=== PATIENT | male | born 1950 | race Caucasian/White ===

== ENCOUNTER 2019-11-08 01:37 | Inpatient (IN) | payer MEDICARE, OTHER ==
[2019-11-08 02:49] LABS: Glucose,Whole Blood 513 mg/dL (75-99)
[2019-11-08] MEDS ORDERED: INSULIN REGULAR 100 UNIT/ML VIAL IV STA (02:51)
[2019-11-08] MEDS ORDERED: SODIUM CHLORIDE 0.9% 2,000 ML IV ONE (02:51)
--- NOTE | 2019-11-08 02:55 | ED ---
ENT HPI - General Chief complaint: ENT Stated complaint: Dry Mouth Time Seen by Provider: 11/08/19 01:55 Source: patient Mode of arrival: ambulatory Limitations: no limitations - History of Present Illness Initial comments: This patient is a 69-year-old man who presents to be evaluated for dry mouth. He states that the symptoms have been getting progressively worse over the past 2 weeks or so. The patient notes that over the past couple of days his mouth is been so dry that he is not eating solid food. He has been drinking Pedialyte and taking milkshakes only. In addition tonight the patient was feeling a little lightheaded when he stands. He does note that he has been trying to drink a lot of fluids and states that he is urinating more frequently. The patient denies chest pain, palpitations, or dyspnea. No fever or chills. MD complaint: other (Dry mouth) Onset/Timin -: week(s) Severity: severe Severity scale (1-10): 0 Consistency: constant Improves with: none Worsens with: none - Related Data Home Medications Medication Instructions Recorded Confirmed Allopurinol [Zyloprim] 300 mg PO DAILY 11/08/19 11/08/19 Aspirin/Acetaminophen/Caffeine 1 tab PO BID PRN 11/08/19 11/08/19 [Excedrin Migraine Caplet] Bisoprolol-Hctz 2.5-6.25 mg [Ziac 1 tab PO DAILY 11/08/19 11/08/19 2.5-6.25 MG] Cetirizine HCl [Zyrtec] 10 mg PO DAILY PRN 11/08/19 11/08/19 Rosuvastatin Calcium 10 mg PO DAILY 11/08/19 11/08/19 Zolpidem [Ambien] 5 mg PO HS PRN 11/08/19 11/08/19 clonazePAM 2 mg PO HS 11/08/19 11/08/19 clonazePAM [KlonoPIN] 0.5 mg PO QAM 11/08/19 11/08/19 Previous Rx's Medication Instructions Recorded Alcohol Antiseptic Pads [Alcohol 1 each TP QID #120 med..pad 11/09/19 Swabs] Blood Sugar Diagnostic [Test 90 each AC-TID #90 strip 11/09/19 Strips] Insulin Detemir [Levemir Flextouch] 10 units SQ AC-BRKFST #1 pen 11/09/19 Lancets 1 each AC-TID #90 each 11/09/19 Pen Needle, Diabetic [Pen Needle] 1 each [facility] dis.needle 11/09/19 Allergies Allergy/AdvReac Type Severity Reaction Status Date / Time No Known Allergies Allergy Verified 11/08/19 08:47 Review of Systems ROS Statement: Those systems with pertinent positive or pertinent negative responses have been documented in the HPI. ROS Other: All systems not noted in ROS Statement are negative. Constitutional: Denies: fever, chills, weakness Respiratory: Denies: cough, dyspnea Cardiovascular: Denies: chest pain, palpitations, edema, syncope Endocrine: Reports: fatigue, polydipsia, polyuria Gastrointestinal: Denies: abdominal pain, vomiting, diarrhea Genitourinary: Denies: dysuria, hematuria Musculoskeletal: Denies: back pain Skin: Denies: rash Neurological: Denies: headache, weakness, numbness Past Medical History Past Medical History: Hyperlipidemia, Hypertension Additional Past Medical History / Comment(s): kidney stones, anxiety History of Any Multi-Drug Resistant Organisms: None Reported Past Surgical History: Joint Replacement, Prostate Surgery Past Psychological History: No Psychological Hx Reported Smoking Status: Never smoker Past Alcohol Use History: None Reported Past Drug Use History: None Reported - Past Family History Mother Family Medical History: AICD/Pacemaker, Diabetes Mellitus, Thyroid Disorder Additional Family Medical History / Comment(s): Colon cancer, breast cancer, CHF Father Additional Family Medical History / Comment(s): ALS General Exam Limitations: no limitations General appearance: alert, in no apparent distress Head exam: Present: atraumatic, normocephalic Eye exam: Present: normal appearance ENT exam: Present: mucous membranes dry Respiratory exam: Present: normal lung sounds bilaterally. Absent: respiratory distress, wheezes, rales, rhonchi, stridor Cardiovascular Exam: Present: normal rhythm, tachycardia, normal heart sounds. Absent: systolic murmur, diastolic murmur, rubs, gallop GI/Abdominal exam: Present: soft. Absent: distended, tenderness, guarding, rebound, rigid, mass Extremities exam: Present: normal inspection, normal capillary refill. Absent: pedal edema, calf tenderness Back exam: Present: normal inspection. Absent: CVA tenderness (R), CVA tenderness (L) Neurological exam: Present: alert Skin exam: Present: warm, dry, intact, normal color. Absent: rash Course Vital Signs 11/08/19 11/08/19 11/08/19 01:43 05:22 05:30 Temperature 97.5 F L Pulse Rate 121 H Respiratory 20 Rate Blood Pressure 138/72 157/105 O2 Sat by Pulse 98 82 L 95 Oximetry 11/08/19 11/08/19 11/08/19 06:00 06:30 06:58 Temperature 98.3 F Pulse Rate 84 Respiratory Rate Blood Pressure 143/90 143/90 O2 Sat by Pulse 98 100 Oximetry Medical Decision Making - Medical Decision Making This patient is 69-year-old man presenting for dry mouth, polydipsia, polyuria. Patient found to be new onset diabetes mellitus, labs suggesting DKA. Patient started on fluids and insulin and will be admitted area - Lab Data Result diagrams: 11/09/19 03:53 11/09/19 03:53 Lab Results 11/08/19 11/08/19 11/08/19 Range/Units 02:40 02:40 02:40 WBC 7.9 (3.8-10.6) k/uL RBC 5.66 (4.30-5.90) m/uL Hgb 18.3 H (13.0-17.5) gm/dL Hct 53.4 H (39.0-53.0) % MCV 94.3 (80.0-100.0) fL MCH 32.3 (25.0-35.0) pg MCHC 34.3 (31.0-37.0) g/dL RDW 13.3 (11.5-15.5) % Plt Count 308 (150-450) k/uL Neutrophils % 81 % Lymphocytes % 12 % Monocytes % 5 % Eosinophils % 1 % Basophils % 0 % Neutrophils # 6.5 (1.3-7.7) k/uL Lymphocytes # 0.9 L (1.0-4.8) k/uL Monocytes # 0.4 (0-1.0) k/uL Eosinophils # 0.1 (0-0.7) k/uL Basophils # 0.0 (0-0.2) k/uL Sodium 136 L (137-145) mmol/L Potassium 4.8 (3.5-5.1) mmol/L Chloride 98 (98-107) mmol/L Carbon Dioxide 11 L (22-30) mmol/L Anion Gap 27 mmol/L BUN 16 (9-20) mg/dL Creatinine 1.18 (0.66-1.25) mg/dL Est GFR (CKD-EPI)AfAm 73 (>60 ml/min/1.73 sqM) Est GFR (CKD-EPI)NonAf 64 (>60 ml/min/1.73 sqM) Glucose 504 H* (74-99) mg/dL POC Glucose (mg/dL) (75-99) mg/dL POC Glu Linen Aide ID Estimated Ave Glu mg/dL 301 Hemoglobin A1c 12.1 H (4.0-6.0) % Calcium 10.1 (8.4-10.2) mg/dL Total Bilirubin 0.7 (0.2-1.3) mg/dL AST 32 (17-59) U/L ALT 50 H (4-49) U/L Alkaline Phosphatase 128 H (38-126) U/L Total Protein 8.0 (6.3-8.2) g/dL Albumin 5.2 H (3.5-5.0) g/dL Urine Color Urine Appearance (Clear) Urine pH (5.0-8.0) Ur Specific Pedro (1.001-1.035) Urine Protein (Negative) Urine Glucose (UA) (Negative) Urine Ketones (Negative) Urine Blood (Negative) Urine Nitrite (Negative) Urine Bilirubin (Negative) Urine Urobilinogen (<2.0) mg/dL Ur Leukocyte Esterase (Negative) Urine RBC (0-5) /hpf Urine WBC (0-5) /hpf Urine Mucus (None) /hpf Acetone, Qual Positive (Negative) 11/08/19 11/08/19 11/08/19 Range/Units 02:44 03:00 04:35 WBC (3.8-10.6) k/uL RBC (4.30-5.90) m/uL Hgb (13.0-17.5) gm/dL Hct (39.0-53.0) % MCV (80.0-100.0) fL MCH (25.0-35.0) pg MCHC (31.0-37.0) g/dL RDW (11.5-15.5) % Plt Count (150-450) k/uL Neutrophils % % Lymphocytes % % Monocytes % % Eosinophils % % Basophils % % Neutrophils # (1.3-7.7) k/uL Lymphocytes # (1.0-4.8) k/uL Monocytes # (0-1.0) k/uL Eosinophils # (0-0.7) k/uL Basophils # (0-0.2) k/uL Sodium (137-145) mmol/L Potassium (3.5-5.1) mmol/L Chloride (98-107) mmol/L Carbon Dioxide (22-30) mmol/L Anion Gap mmol/L BUN (9-20) mg/dL Creatinine (0.66-1.25) mg/dL Est GFR (CKD-EPI)AfAm (>60 ml/min/1.73 sqM) Est GFR (CKD-EPI)NonAf (>60 ml/min/1.73 sqM) Glucose (74-99) mg/dL POC Glucose (mg/dL) 513 H 450 H (75-99) mg/dL POC Glu Linen Aide Jose Still Tara, A [address]imated [address] Glu mg/dL Hemoglobin A1c (4.0-6.0) % Calcium (8.4-10.2) mg/dL Total Bilirubin (0.2-1.3) mg/dL AST (17-59) U/L ALT (4-49) U/L Alkaline Phosphatase (38-126) U/L Total Protein (6.3-8.2) g/dL Albumin (3.5-5.0) g/dL Urine Color Light Yellow Urine Appearance Clear (Clear) Urine pH 5.0 (5.0-8.0) Ur Specific Pedro 1.029 (1.001-1.035) Urine Protein 1+ H (Negative) Urine Glucose (UA) 4+ H (Negative) Urine Ketones 4+ H (Negative) Urine Blood Small H (Negative) Urine Nitrite Negative (Negative) Urine Bilirubin Negative (Negative) Urine Urobilinogen <2.0 (<2.0) mg/dL Ur Leukocyte Esterase Negative (Negative) Urine RBC <1 (0-5) /hpf Urine WBC 1 (0-5) /hpf Urine Mucus Rare H (None) /hpf Acetone, Qual (Negative) Critical Care Time Critical Care Time: Yes (35 minutes) Disposition Clinical Impression: DKA (diabetic ketoacidosis) Disposition: ADMITTED IP TO THIS [facility] Condition: Stable Is patient prescribed a controlled substance at d/c from ED?: No
[2019-11-08 03:09] LABS: ALT 50 U/L (4-49); AST 32 U/L (17-59); African American GFR (CKD) 73 (>60 ml/min/1.73 sqM); Albumin 5.2 g/dL (3.5-5.0); Alkaline Phosphatase 128 U/L (38-126); Anion Gap 27 mmol/L; Blood Urea Nitrogen 16 mg/dL (9-20); Calcium 10.1 mg/dL (8.4-10.2); Carbon Dioxide 11 mmol/L (22-30); Chloride 98 mmol/L (98-107); Non-African American GFR(CKD) 64 (>60 ml/min/1.73 sqM); Potassium 4.8 mmol/L (3.5-5.1); Sodium 136 mmol/L (137-145); Total Bilirubin 0.7 mg/dL (0.2-1.3)
[2019-11-08 03:13] LABS: Glucose 504 mg/dL (74-99)
[2019-11-08 03:28] LABS: Appearance,Urine Clear (Clear); Bilirubin,Urine Negative (Negative); Blood,Urine Small (Negative); Color,Urine Light Yellow; Glucose,Urine (UA) 4+ (Negative); Leukocyte Esterase,Urine Negative (Negative); Mucus,Urine Rare /hpf; Nitrite,Urine Negative (Negative); Protein,Urine 1+ (Negative); RBC,Urine <1 /hpf (0-5); Specific Gravity,Urine 1.029 (1.001-1.035); Urobilinogen,Urine <2.0 mg/dL (<2.0); WBC,Urine 1 /hpf (0-5)
[2019-11-08 03:30] LABS: Basophils % (A) 0 %; Eosinophils # (A) 0.1 k/uL (0-0.7); Eosinophils % (A) 1 %; HCT 53.4 % (39.0-53.0); HGB 18.3 gm/dL (13.0-17.5); Lymphocytes # (A) 0.9 k/uL (1.0-4.8); Lymphocytes % (A) 12 %; MCH 32.3 pg (25.0-35.0); MCHC 34.3 g/dL (31.0-37.0); MCV 94.3 fL (80.0-100.0); Mean Platelet Volume 8.6; Monocytes # (A) 0.4 k/uL (0-1.0); Monocytes % (A) 5 %; Neutrophils # (A) 6.5 k/uL (1.3-7.7); Neutrophils % (A) 81 %; Platelet Count 308 k/uL (150-450); RBC 5.66 m/uL (4.30-5.90); RDW 13.3 % (11.5-15.5); WBC 7.9 k/uL (3.8-10.6)
[2019-11-08 03:32] LABS: Ketones,Urine 4+ (Negative)
[2019-11-08 04:38] LABS: Glucose,Whole Blood 450 mg/dL (75-99)
[2019-11-08] MEDS ORDERED: D5-0.45% NACL WITH KCL 20MEQ/L 1,000 ML IV SCH (05:15)
[2019-11-08] MEDS: INSULIN REGULAR 100 UNIT in SODIUM CHLORIDE 0.9% 100 ML IV SCH ×2 (05:23→15:03)
[2019-11-08] MEDS: SODIUM CHLORIDE 0.9% 1,000 ML IV SCH ×3 (05:26→16:55)
[2019-11-08 06:25] LABS: Glucose,Whole Blood 420 mg/dL (75-99)
--- NOTE | 2019-11-08 06:27 | P.HPIM ---
History of Present Illness H&P Date: 11/08/19 The patient is a 69-year-old male with a PMH of hypertension and hyperlipidemia who presented to the ED with complaints of dry mouth and fatigue. The patient notes that over the past 2-3 weeks, he has had increased thirst, polyuria, and dry mouth, despite drinking a significant amount of water. He notes that the dry mouth has been so bothersome that he has only been able to eat soups and popsicles for the past few days. He routinely follows with Dr. Vinson and was last seen in his clinic in November 2018 where he underwent his regular blood work. He denied ever being diagnosed with diabetes. He notes that over the past few days, he has also felt very tired and has had very little energy to do most of his activities of daily living such as walking his dog. He otherwise denied visual disturbances, headache, chest pain, shortness of breath, nausea, vomiting, abdominal pain, or diarrhea. He underwent an extensive evaluation in the emergency room with glucose 504, anion gap 27, CO2 11, 4+ ketones and 4+ glucose in the urine, with WBC count 7.9, hemoglobin 18.3, and platelets 308. The patient was given 1 L normal saline bolus and was started on insulin infusion and is being admitted for further management of newly diagnosed diabetes mellitus with DKA. Review of Systems Pertinent positives and negatives as discussed in HPI, a complete review of systems was performed and all other systems are negative. Past Medical History Past Medical History: Hyperlipidemia, Hypertension Additional Past Medical History / Comment(s): kidney stones, anxiety History of Any Multi-Drug Resistant Organisms: None Reported Past Surgical History: Joint Replacement, Prostate Surgery Past Psychological History: No Psychological Hx Reported Smoking Status: Never smoker Past Alcohol Use History: None Reported Past Drug Use History: None Reported Medications and Allergies Allergies Allergy/AdvReac Type Severity Reaction Status Date / Time No Known Allergies Allergy Verified 11/08/19 01:50 Physical Exam Vitals: Vital Signs Temp Pulse Resp BP Pulse Ox 11/08/19 05:30 157/105 95 11/08/19 05:22 82 L 11/08/19 01:43 97.5 F L 121 H 20 138/72 98 Intake and Output 11/07/19 11/07/19 11/08/19 14:59 22:59 06:59 Other: Weight 97.522 kg General: non toxic, no distress, appears at stated age, normal weight Derm: no unusual rashes/lesions no unusual ecchymoses, warm, dry Head: atraumatic, normocephalic, symmetric Eyes: EOMI, no lid lag, anicteric sclera, pupils equal round reactive to light ENT: Nose and ears atraumatic, no thrush, no pharyngeal erythema Neck: No thyromegaly, no cervical lymphadenopathy, trachea midline, supple Mouth: no lip lesion, mucus membranes very dry Cardiovascular: S1S2 reg, no murmur, positive posterior tibial pulse bilateral, no edema, capillary refill less than 2 seconds Lungs: CTA bilateral, no rhonchi, no rales , no accessory muscle use Abdominal: soft, nontender to palpation, no guarding, no appreciable organomegaly, normal bowel sounds Ext: no gross muscle atrophy, muscle strength 5 out of 5 in all 4 extremities grossly, no contractures, Neuro: CN II-XI grossly intact, light touch intact all 4 extremities, finger to nose within normal limits, Psych: Alert, oriented, appropriate affect Results CBC & Chem 7: 11/08/19 02:40 11/08/19 02:40 Labs: Abnormal Lab Results - Last 24 Hours (Table) 11/08/19 11/08/19 11/08/19 Range/Units 02:40 02:40 02:44 Hgb 18.3 H (13.0-17.5) gm/dL Hct 53.4 H (39.0-53.0) % Lymphocytes # 0.9 L (1.0-4.8) k/uL Sodium 136 L (137-145) mmol/L Carbon Dioxide 11 L (22-30) mmol/L Glucose 504 H* (74-99) mg/dL POC Glucose (mg/dL) 513 H (75-99) mg/dL ALT 50 H (4-49) U/L Alkaline Phosphatase 128 H (38-126) U/L Albumin 5.2 H (3.5-5.0) g/dL Urine Protein (Negative) Urine Glucose (UA) (Negative) Urine Ketones (Negative) Urine Blood (Negative) Urine Mucus (None) /hpf 11/08/19 11/08/19 Range/Units 03:00 04:35 Hgb (13.0-17.5) gm/dL Hct (39.0-53.0) % Lymphocytes # (1.0-4.8) k/uL Sodium (137-145) mmol/L Carbon Dioxide (22-30) mmol/L Glucose (74-99) mg/dL POC Glucose (mg/dL) 450 H (75-99) mg/dL ALT (4-49) U/L Alkaline Phosphatase (38-126) U/L Albumin (3.5-5.0) g/dL Urine Protein 1+ H (Negative) Urine Glucose (UA) 4+ H (Negative) Urine Ketones 4+ H (Negative) Urine Blood Small H (Negative) Urine Mucus Rare H (None) /hpf Assessment and Plan Plan: Newly diagnosed diabetes mellitus with DKA -Continue with insulin infusion with normal saline 200 mL an hour -Switch to D5 1/2 NS when blood glucose less than 250, as per protocol -Continue to monitor BMP every 4 hourly and blood glucose every 30 minutes -Diabetes nurse educator consult -Follow up A1c Abnormal LFTs -Likely secondary to dehydration and poorly controlled diabetes -Continue with above management Polycythemia -Likely due dehydration and hemoconcentration -Monitor CBC for now Chronic conditions: Hypertension, hyperlipidemia -Continue with home meds DVT prophylaxis -Heparin subq The patient is admitted with an anticipated less than 2 midnight stay for evaluation of DKA CODE STATUS: No Code with instructions Discussed with: Patient Anticipated discharge date: 11/[address]: Home A total of 40 minutes was spent on the care of this complex patient more than 50% of the time was spent in counseling and care coordination.
[2019-11-08 07:33] LABS: Glucose,Whole Blood 306 mg/dL (75-99)
--- NOTE | 2019-11-08 09:01 | XR ---
EXAMINATION TYPE: XR chest 1V portable DATE OF EXAM: 11/08/2019 HISTORY: Shortness of breath. COMPARISON: None. TECHNIQUE: Single view of the chest is submitted. FINDINGS: Demonstrated are scattered senescent parenchymal change. There is no evidence for focal infiltrate. The heart is stable. Hilar and mediastinal structures are within normal limits. Degenerative changes are seen of the dorsal spine. IMPRESSION: 1. Chronic changes without evidence for acute pulmonary disease.
[2019-11-08 09:09] LABS: Glucose,Whole Blood 228 mg/dL (75-99)
[2019-11-08 09:11] LABS: African American GFR (CKD) >90 (>60 ml/min/1.73 sqM); Amylase 44 U/L (30-110); Anion Gap 17 mmol/L; Blood Urea Nitrogen 16 mg/dL (9-20); Carbon Dioxide 12 mmol/L (22-30); Chloride 107 mmol/L (98-107); Glucose 203 mg/dL (74-99); Non-African American GFR(CKD) 89 (>60 ml/min/1.73 sqM); Sodium 136 mmol/L (137-145)
[2019-11-08 09:13] LABS: VBG PH 7.17 (7.31-7.41)
[2019-11-08] MEDS: D5-0.45% NACL WITH KCL 20MEQ/L 1,000 ML IV SCH ×3 (09:45→19:47)
[2019-11-08 10:07] VITALS: BMI 31.9
[2019-11-08 10:15] LABS: Glucose,Whole Blood 181 mg/dL (75-99)
[2019-11-08] MEDS ORDERED: ZOLPIDEM 5 MG TAB PO PRN (11:03)
[2019-11-08] MEDS ORDERED: LORATADINE 10 MG TAB PO PRN (11:03)
--- NOTE | 2019-11-08 11:03 | P.PN ---
Progress Note - Text Progress Note Date: 11/08/19 Patient is a new admitted from last night, he was seen and examined. He is currently still in DKA, on insulin drip. He'll be started on clear liquid diet. Continue DKA protocol, will start subcu insulin once gap closes. Resume home meds.
[2019-11-08 11:10] LABS: Glucose,Whole Blood 167 mg/dL (75-99)
--- NOTE | 2019-11-08 11:52 | P.CNPUL ---
History of Present Illness Consult date: 11/08/19 Chief complaint: Acute hyperglycemia, DKA History of present illness: This is a 69-year-old male patient has been having these oral intake and liquid intake in addition to dry mouth and increased urination over the past 3 months. He was having polyuria and polydipsia. He claims that he has had his blood work routinely through his primary care physician and he was not told to have any abnormalities noted. He was getting gradually worse and over the past few days he became more tired and fatigued and lethargic and he was having also extensive tiredness. He came into the emergency department where he was found to have a blood sugar of 504 with an anion gap of 27 and a serum bicarb of 11 with a plus for ketones on in his urine and this was consistent with acute diabetic ketoacidosis. Note that the patient is not known to have diabetes. Diabetes on the family. No fever. No chills no night sweats. No dysuria fixed urgency. No chest pain. He was started on IV fluids. He was given immediately 2 L bolus and the patient was started on insulin drip is currently running at 9 units an hour. He is also on normal saline at rate of 200 and hour. New onset diabetes mellitus and new onset DKA in this patient. No history of abdominal tumors or alcoholism. He is awake and alert and is following commands and answering questions appropriately. He is known to have diabetes hyperlipidemia. Review of Systems Constitutional: Reports lethargy, Reports weakness Eyes: bilateral blurred vision, denies as per HPI, denies bulging eye, denies decreased vision, denies diplopia, denies discharge, denies dry eye, denies irritation, denies itching, denies pain, denies photophobia, denies loss of peripheral vision, denies loss of vision, denies tunnel vision/blind spots Ears: deny: decreased hearing, ear discharge, earache, tinnitus Ears, nose, mouth and throat: Denies headache, Denies sore throat Breasts: absent: as per HPI, gynecomastia Cardiovascular: Reports as per HPI Respiratory: Reports as per HPI Gastrointestinal: Reports as per HPI Genitourinary: Reports as per HPI Musculoskeletal: Reports as per HPI Musculoskeletal: absent: ankle pain, ankle stiffness, ankle swelling Integumentary: Reports as per HPI Neurological: Reports as per HPI Psychiatric: Reports as per HPI Endocrine: Reports polydipsia, Reports polyuria Hematologic/Lymphatic: Reports as per HPI Allergic/Immunologic: Reports as per HPI Past Medical History Past Medical History: Hyperlipidemia, Hypertension Additional Past Medical History / Comment(s): kidney stones, anxiety History of Any Multi-Drug Resistant Organisms: None Reported Past Surgical History: Joint Replacement, Prostate Surgery Additional Past Surgical History / Comment(s): Left knee total knee - 2007, re vision - 2012. TURP - 2006 Past Anesthesia/Blood Transfusion Reactions: No Reported Reaction Past Psychological History: Anxiety Smoking Status: Never smoker Past Alcohol Use History: None Reported Past Drug Use History: None Reported - Past Family History Mother Family Medical History: AICD/Pacemaker, Diabetes Mellitus, Thyroid Disorder Additional Family Medical History / Comment(s): Colon cancer, breast cancer, CHF Father Additional Family Medical History / Comment(s): ALS Medications and Allergies Home Medications Medication Instructions Recorded Confirmed Type Allopurinol [Zyloprim] 300 mg PO DAILY 11/08/19 11/08/19 History Aspirin/Acetaminophen/Caffeine 1 tab PO BID PRN 11/08/19 11/08/19 History [Excedrin Migraine Caplet] Bisoprolol-Hctz 2.5-6.25 mg [Ziac 1 tab PO DAILY 11/08/19 11/08/19 History 2.5-6.25 MG] Cetirizine HCl [Zyrtec] 10 mg PO DAILY PRN 11/08/19 11/08/19 History Rosuvastatin Calcium 10 mg PO DAILY 11/08/19 11/08/19 History Zolpidem [Ambien] 5 mg PO HS PRN 11/08/19 11/08/19 History clonazePAM 2 mg PO HS 11/08/19 11/08/19 History clonazePAM [KlonoPIN] 0.5 mg PO QAM 11/08/19 11/08/19 History Allergies Allergy/AdvReac Type Severity Reaction Status Date / Time No Known Allergies Allergy Verified 11/08/19 08:47 Physical Exam Vitals: Vital Signs Temp Pulse Resp BP Pulse Ox 11/08/19 11:00 87 14 112/77 98 11/08/19 10:00 91 14 112/80 97 11/08/19 09:00 88 13 134/83 97 11/08/19 08:00 97.1 F L 101 H 18 153/89 98 11/08/19 06:58 84 11/08/19 06:30 98.3 F 143/90 100 11/08/19 06:00 143/90 98 11/08/19 05:30 157/105 95 11/08/19 05:22 82 L 11/08/19 01:43 97.5 F L 121 H 20 138/72 98 Intake and Output 11/07/19 11/08/19 11/08/19 22:59 06:59 14:59 Intake Total 950 Output Total 600 Balance 350 Intake: IV 750 D5-0.45% NaCl with KCl 200 20Meq/l 1,000 ml @ 150 mls/hr IV .Q6H40M ALEX Rx# :[id number] Sodium Chloride 0.9% 1, 550 000 ml @ 200 mls/hr IV . Q5H ALEX Rx#:[id number] Oral 200 Output: Urine 600 Other: Voiding Method Toilet Urinal Weight 97.522 kg 95.3 kg The patient appeared well nourished and normally developed. Vital signs as documented. Head exam is unremarkable. No scleral icterus or corneal arcus noted. Neck is without jugular venous distension, thyromegaly, or carotid bruits. Carotid upstrokes are brisk bilaterally. Lungs are clear to auscultation and percussion. Cardiac exam reveals the PMI to be normally sized and situated. Rhythm is regular. First and second heart sounds normal. No murmurs, rubs or gallops. Abdominal exam reveals normal bowel sounds, no masses, no organomegaly and no aortic enlargement. Extremities are nonedematous and both femoral and pedal pulses are normal.Examination of the skin revealed no evidence of significant rashes, suspicious appearing nevi or other concerning lesions. Neurologically the patient is awake and alert and there is no focal neurological deficits. Results - Laboratory Findings CBC and BMP: 11/08/19 02:40 11/08/19 08:25 Abnormal lab findings: Abnormal Labs 11/08/19 11/08/19 11/08/19 02:40 02:40 02:44 Hgb 18.3 H Hct 53.4 H Lymphocytes # 0.9 L VBG pH VBG pCO2 VBG HCO3 Sodium 136 L Carbon Dioxide 11 L Glucose 504 H* POC Glucose (mg/dL) 513 H ALT 50 H Alkaline Phosphatase 128 H Albumin 5.2 H Lipase Urine Protein Urine Glucose (UA) Urine Ketones Urine Blood Urine Mucus 11/08/19 11/08/19 11/08/19 03:00 04:35 06:24 Hgb Hct Lymphocytes # VBG pH VBG pCO2 VBG HCO3 Sodium Carbon Dioxide Glucose POC Glucose (mg/dL) 450 H 420 H ALT Alkaline Phosphatase Albumin Lipase Urine Protein 1+ H Urine Glucose (UA) 4+ H Urine Ketones 4+ H Urine Blood Small H Urine Mucus Rare H 11/08/19 11/08/19 11/08/19 07:31 08:25 08:25 Hgb Hct Lymphocytes # VBG pH 7.17 L* VBG pCO2 36 L VBG HCO3 12 L Sodium 136 L Carbon Dioxide 12 L Glucose 203 H POC Glucose (mg/dL) 306 H ALT Alkaline Phosphatase Albumin Lipase 387 H Urine Protein Urine Glucose (UA) Urine Ketones Urine Blood Urine Mucus 11/08/19 11/08/19 11/08/19 09:07 10:12 11:09 Hgb Hct Lymphocytes # VBG pH VBG pCO2 VBG HCO3 Sodium Carbon Dioxide Glucose POC Glucose (mg/dL) 228 H 181 H 167 H ALT Alkaline Phosphatase Albumin Lipase Urine Protein Urine Glucose (UA) Urine Ketones Urine Blood Urine Mucus - Diagnostic Findings Chest x-ray: image reviewed Assessment and Plan Plan: 1 DKA in a patient who is been diagnosed having a new onset diabetes mellitus 2 anion gap metabolic acidosis secondary to above 3 elevated hemoglobin likely secondary to hemoconcentration 4 hypertension 5 hyperlipidemia Plan Continue with insulin drip based on our DKA protocol. The patient's blood sugar remains above 300 and we'll switch him to D5 half-normal once the blood sugar is less than 250 and continue the insulin drip and monitor the anion gap in the metabolic acidosis and a BMP is being run every 4 hours. Check HbA1c Check CAT scan of the abdomen and pelvis Check amylase and lipase Check islet cell antibodies Check lipid profile Diabetes education We'll continue to follow
[2019-11-08 12:02] LABS: Glucose,Whole Blood 171 mg/dL (75-99)
[2019-11-08] MEDS: BISOPROLOL-HCTZ 2.5-6.25 MG 1 EACH TAB PO SCH (12:11)
[2019-11-08] MEDS: ALLOPURINOL 300 MG TAB PO SCH (12:11)
[2019-11-08] MEDS: ATORVASTATIN 20 MG TAB PO SCH (12:11)
[2019-11-08 12:46] LABS: African American GFR (CKD) >90 (>60 ml/min/1.73 sqM); Anion Gap 10 mmol/L; Blood Urea Nitrogen 15 mg/dL (9-20); Carbon Dioxide 17 mmol/L (22-30); Chloride 108 mmol/L (98-107); Glucose 149 mg/dL (74-99); Non-African American GFR(CKD) >90 (>60 ml/min/1.73 sqM); Phosphorus 1.7 mg/dL (2.5-4.5); Sodium 135 mmol/L (137-145)
[2019-11-08 13:11] LABS: Hemoglobin A1C 12.1 % (4.0-6.0)
[2019-11-08 13:17] LABS: Glucose,Whole Blood 229 mg/dL (75-99)
[2019-11-08] MEDS: IOPAMIDOL CONTRAST (ORAL USE) VIAL PO PRN ×2 (13:48→14:45)
[2019-11-08 14:10] LABS: Glucose,Whole Blood 223 mg/dL (75-99)
[2019-11-08 15:12] LABS: Glucose,Whole Blood 191 mg/dL (75-99)
[2019-11-08 16:09] LABS: Glucose,Whole Blood 146 mg/dL (75-99)
[2019-11-08 16:23] LABS: ALT 34 U/L (4-49); AST 31 U/L (17-59); African American GFR (CKD) >90 (>60 ml/min/1.73 sqM); Albumin 3.4 g/dL (3.5-5.0); Alkaline Phosphatase 69 U/L (38-126); Anion Gap 9 mmol/L; Blood Urea Nitrogen 13 mg/dL (9-20); Calcium 8.3 mg/dL (8.4-10.2); Carbon Dioxide 18 mmol/L (22-30); Chloride 104 mmol/L (98-107); Glucose 118 mg/dL (74-99); Non-African American GFR(CKD) >90 (>60 ml/min/1.73 sqM); Phosphorus 1.3 mg/dL (2.5-4.5); Potassium 3.3 mmol/L (3.5-5.1); Sodium 131 mmol/L (137-145); Total Bilirubin 0.4 mg/dL (0.2-1.3); Total Protein 5.8 g/dL (6.3-8.2)
[2019-11-08] MEDS ORDERED: Potassium Replacement Protocol 1 EACH MISC MISCELLANE PRN (16:43)
[2019-11-08] MEDS ORDERED: Phosphorus Replacement Protoco 1 EACH MISC MISCELLANE PRN (16:44)
--- NOTE | 2019-11-08 17:01 | CT ---
EXAMINATION TYPE: CT abdomen pelvis wo con DATE OF EXAM: 11/08/2019 COMPARISON: None HISTORY: abdominal pain, new diabetes dx CT DLP: 840.4 mGycm Automated exposure control for dose reduction was used. TECHNIQUE: Helical acquisition of images from the lung bases through the pelvis following oral contr ast only. FINDINGS: LUNG BASES: No significant abnormality is appreciated. AORTA: No significant abnormality is appreciated. LIVER/GB: The gallbladder shows luminal high density possibly due to vicarious excretion of contrast or tumefactive sludge, there are associated stones with central stellate lucency. No gallbladder wall thickening or pericholecystic fluid. Low dense foci within the liver are present, towards the dome l aterally there is a focus measuring 3 cm and a smaller focus within the medial segment left lobe subc entimeter in size.. PANCREAS: No significant abnormality is seen. SPLEEN: No significant abnormality is seen. ADRENALS: No significant abnormality is seen. KIDNEYS: 3 cm exophytic cyst at the lower pole the right kidney is likely a simple cyst, possible exo phytic cyst also present at the anterior aspect of the midpole measuring 2.1 cm, smaller cystic focus present at the lower pole anteriorly. No hydronephrosis bilaterally. Nonobstructive calculus present at the lower pole the left kidney is punctate. Possible dense cyst in exophytic location of the midp ole measures only 13 mm but shows increased attenuation, Hounsfield unit 55 on axial image 26, additi onal scattered hypodensities are not clearly simple cysts within the left kidney but the midpole on a xial image 29 and at the lower pole on axial image #41 and 42 REPRODUCTIVE ORGANS: Patient is post prostatectomy, surgical clips present in the pelvis URINARY BLADDER: No significant abnormality is seen. BOWEL: No significant abnormality is seen. Fundus of the stomach shows questionable wall thickening. FREE AIR: No Free Air is visible. ASCITES: None visible. PELVIC ADENOPATHY: None visualized. RETROPERITONEAL ADENOPATHY: No Retroperitoneal Adenopathy visible. OSSEOUS STRUCTURES: Facet arthropathy change, degenerative disc disease in the lower lumbar spine. IMPRESSION: NONCONTRAST EXAM. POSTOP CHANGES. INDETERMINATE RENAL LESIONS COULD POSSIBLY REPRESENT PROTEINACEOUS CYSTS, FOLLOW-UP IS RECOMMENDED. SMALL HIATAL HERNIA. POSSIBLE GASTRIC WALL THICKENING.
[2019-11-08 17:13] LABS: Glucose,Whole Blood 154 mg/dL (75-99)
[2019-11-08] MEDS: INSULIN DETEMIR (LEVEMIR) 100 UNIT/ML SYR SQ SCH (17:41)
[2019-11-08] MEDS: INSULIN ASPART (NovoLOG) 100 UNIT/ML VIAL SQ SCH ×2 (17:42→20:35)
[2019-11-08] MEDS: POTASSIUM CHLORIDE ER 20 MEQ TAB.ER PO SCH ×2 (17:49→18:45)
[2019-11-08 18:23] LABS: Glucose,Whole Blood 163 mg/dL (75-99)
[2019-11-08] MEDS: POTASSIUM PHOSPHATE 10 MMOL in SODIUM CHLORIDE 0.9% 250 ML IV SCH ×2 (19:48→22:13)
[2019-11-08 20:18] LABS: Glucose,Whole Blood 182 mg/dL (75-99)
[2019-11-08] MEDS ORDERED: clonazePAM 1 MG TAB PO SCH (21:00)
[2019-11-09] MEDS: POTASSIUM PHOSPHATE 10 MMOL in SODIUM CHLORIDE 0.9% 250 ML IV SCH (01:47)
[2019-11-09] MEDS: INSULIN REGULAR 100 UNIT in SODIUM CHLORIDE 0.9% 100 ML IV SCH (02:00)
[2019-11-09 04:29] LABS: HCT 38.7 % (39.0-53.0); MCH 32.3 pg (25.0-35.0); MCV 92.3 fL (80.0-100.0); Mean Platelet Volume 8.3; Platelet Count 188 k/uL (150-450); RBC 4.19 m/uL (4.30-5.90); RDW 13.4 % (11.5-15.5); WBC 6.7 k/uL (3.8-10.6)
[2019-11-09 04:33] VITALS: PULSE 78
[2019-11-09 04:36] LABS: ALT 36 U/L (4-49); AST 31 U/L (17-59); African American GFR (CKD) >90 (>60 ml/min/1.73 sqM); Albumin 3.1 g/dL (3.5-5.0); Alkaline Phosphatase 68 U/L (38-126); Anion Gap 10 mmol/L; Blood Urea Nitrogen 10 mg/dL (9-20); Calcium 8.2 mg/dL (8.4-10.2); Carbon Dioxide 17 mmol/L (22-30); Chloride 105 mmol/L (98-107); Glucose 200 mg/dL (74-99); Non-African American GFR(CKD) >90 (>60 ml/min/1.73 sqM); Phosphorus 2.9 mg/dL (2.5-4.5); Potassium 4.2 mmol/L (3.5-5.1); Sodium 132 mmol/L (137-145); Total Bilirubin 0.6 mg/dL (0.2-1.3); Total Protein 5.3 g/dL (6.3-8.2)
[2019-11-09 04:44] LABS: HGB 13.5 gm/dL (13.0-17.5)
[2019-11-09 06:32] LABS: Glucose,Whole Blood 245 mg/dL (75-99)
[2019-11-09] MEDS: INSULIN ASPART (NovoLOG) 100 UNIT/ML VIAL SQ SCH ×2 (06:42→12:32)
[2019-11-09] MEDS: INSULIN DETEMIR (LEVEMIR) 100 UNIT/ML SYR SQ SCH (06:51)
[2019-11-09 08:05] VITALS: BP 123/83; RESP 18; TEMP 97.7
[2019-11-09] MEDS: ATORVASTATIN 20 MG TAB PO SCH (08:38)
[2019-11-09] MEDS: BISOPROLOL-HCTZ 2.5-6.25 MG 1 EACH TAB PO SCH (08:40)
[2019-11-09] MEDS: ALLOPURINOL 300 MG TAB PO SCH (08:40)
[2019-11-09] MEDS ORDERED: clonazePAM 0.5 MG TAB PO SCH (09:00)
[2019-11-09 11:42] LABS: Glucose,Whole Blood 254 mg/dL (75-99)
--- NOTE | 2019-11-09 11:55 | P.DS ---
Providers Date of admission: 11/08/19 05:06 Expected date of discharge: 11/09/19 Attending physician: Matt Farias MD Consults: 11/08/19 06:18 Consult Physician Urgent Consulting Provider: Venkatesh Hunter Consult Reason/Comments: DKA Do you want consulting provider notified?: Already Contacted Primary care physician: Eric Vinson [facility] Course: 69-year-old male with PMH of hypertension and dyslipidemia that presented to the ED with dry mouth and fatigue. He had a 2 -3 week complain of increased thirst, polyuria and dry mouth despite drinking significant amount of water. He underwent an extensive evaluation in the emergency room with glucose 504, anion gap 27, CO2 11, 4+ ketones and 4+ glucose in the urine, with WBC count 7.9, hemoglobin 18.3, and platelets 308. The patient was given 1 L normal saline bolus and was started on insulin infusion and is being admitted for further management of newly diagnosed diabetes mellitus with DKA. Patient was started on insulin drip and normal saline which was transitioned to D5 half-normal saline when blood glucose was less than 250 per protocol. Diabetes education was consulted. A1c was ordered which came back at 12.1. Patient was eventually transitioned off the insulin drip to subcutaneous insulin. He was started on Levemir 10 units in the morning along with insulin sliding scale. His presenting symptoms resolved at the time of discharge. Patient was seen and examined. No acute events overnight. Patient denies any chest pain, shortness of breath or palpitations. No nausea or vomiting. No fever or chills. Tolerating oral intake. States that he has been educated on how to use a glucometer and how to use the flex pen by nursing. We discussed diabetic education along with control of carbohydrates and exercise along with warning symptoms of hypoglycemia. We discussed that the patient will keep a log of his blood glucose until he can follow-up with his PCP Dr. Vinson next week. General: [non toxic], [no distress], [appears at stated age] Derm: [warm], [dry] Head: [atraumatic], [normocephalic], [symmetric] Eyes: [EOMI], [no lid lag], [anicteric sclera] Mouth: [no lip lesion], [mucus membranes moist] Cardiovascular: [S1S2 reg], [no murmur], [positive DP pulse bilateral], Lungs: [CTA bilateral], [no rhonchi, no rales] , [no accessory muscle use] Abdominal: [soft], [ nontender to palpation], [no guarding], [no appreciable organomegaly] Ext: [no gross muscle atrophy], [no edema], [no contractures] Neuro: [no focal neuro deficits] Psych: [Alert], [oriented], [appropriate affect] Newly diagnosed diabetes mellitus with DKA -We will discharge the patient on 10 units of Levemir in the morning. -Advised of warning symptoms of hypoglycemic symptoms -Advised to check blood glucose fasting morning along with 2 other times either at lunch or at dinner. -He will need to follow-up with Dr. Vinson for further adjustment of his insulin and to be started on oral hypoglycemics. Renal cyst -As seen on CT abdomen and pelvis. Radiology reads possible proteinaceous cyst. Will need follow-up with PCP. Hyponatremia -Likely pseudo-from hyperglycemia. -Continue oral hydration. Abnormal LFTs -Resolved Polycythemia -Resolved Chronic conditions: Hypertension, hyperlipidemia -Continue with home meds DVT prophylaxis -Heparin subq This complex discharge took about 35 minutes to complete. Pertinent Studies: CT abdomen and pelvis, chest x-ray Patient Condition at Discharge: Stable Plan - Discharge Summary Discharge Rx Participant: Yes New Discharge Prescriptions: New Insulin Detemir [Levemir Flextouch] 10 units SQ AC-BRKFST #1 pen Alcohol Antiseptic Pads [Alcohol Swabs] 1 each TP QID #120 med..pad Lancets 1 each MC AC-TID #90 each Pen Needle, Diabetic [Pen Needle] 1 each AC-BRKFST #30 dis.needle Blood Sugar Diagnostic [Test Strips] 90 each AC-TID #90 strip Continue Cetirizine HCl [Zyrtec] 10 mg PO DAILY PRN PRN Reason: Allergy Symptoms Aspirin/Acetaminophen/Caffeine [Excedrin Migraine Caplet] 1 tab PO BID PRN PRN Reason: Headache clonazePAM 2 mg PO HS Zolpidem [Ambien] 5 mg PO HS PRN PRN Reason: Insomnia Rosuvastatin Calcium 10 mg PO DAILY clonazePAM [KlonoPIN] 0.5 mg PO QAM Bisoprolol-Hctz 2.5-6.25 mg [Ziac 2.5-6.25 MG] 1 tab PO DAILY Allopurinol [Zyloprim] 300 mg PO DAILY Discharge Medication List Allopurinol [Zyloprim] 300 mg PO DAILY 11/08/19 [History] Aspirin/Acetaminophen/Caffeine [Excedrin Migraine Caplet] 1 tab PO BID PRN 11/08/19 [History] Bisoprolol-Hctz 2.5-6.25 mg [Ziac 2.5-6.25 MG] 1 tab PO DAILY 11/08/19 [History] Cetirizine HCl [Zyrtec] 10 mg PO DAILY PRN 11/08/19 [History] Rosuvastatin Calcium 10 mg PO DAILY 11/08/19 [History] Zolpidem [Ambien] 5 mg PO HS PRN 11/08/19 [History] clonazePAM 2 mg PO HS 11/08/19 [History] clonazePAM [KlonoPIN] 0.5 mg PO QAM 11/08/19 [History] Alcohol Antiseptic Pads [Alcohol Swabs] 1 each TP QID #120 med..pad 11/09/19 [Rx] Blood Sugar Diagnostic [Test Strips] 90 each AC-TID #90 strip 11/09/19 [Rx] Insulin Detemir [Levemir Flextouch] 10 units SQ AC-BRKFST #1 pen 11/09/19 [Rx] Lancets 1 each AC-TID #90 each 11/09/19 [Rx] Pen Needle, Diabetic [Pen Needle] 1 each AC-BRKFST #30 dis.needle 11/09/19 [Rx] Follow up Appointment(s)/Referral(s): Eric Vinson MD [Primary Care Provider] - 1-2 days [facility],Equipment [NON-STAFF] - Activity/Diet/Wound Care/Special Instructions: [facility] will deliver a glucometer to patient's bedside before discharge. Diet: Diabetic diet Follow-up PCP within 3 days of discharge. Take all medications as advised. 10 units of Levemir in the morning with breakfast. Please check your blood sugars 3 times a day. Discussed warning symptoms of hypoglycemia. Patient needs also applies - glucometer, test strips, insulin, alcohol pads, needles prior to discharge Teach how to administer Levemir flex pen at bedside prior to discharge. Discharge Disposition: HOME SELF-CARE
--- NOTE | 2019-11-09 13:58 | P.PN ---
Subjective Progress Note Date: 11/09/19 This is a 69-year-old male patient has been having these oral intake and liquid intake in addition to dry mouth and increased urination over the past 3 months. He was having polyuria and polydipsia. He claims that he has had his blood work routinely through his primary care physician and he was not told to have any abnormalities noted. He was getting gradually worse and over the past few days he became more tired and fatigued and lethargic and he was having also extensive tiredness. He came into the emergency department where he was found to have a blood sugar of 504 with an anion gap of 27 and a serum bicarb of 11 with a plus for ketones on in his urine and this was consistent with acute diabetic ketoacidosis. Note that the patient is not known to have diabetes. Diabetes on the family. No fever. No chills no night sweats. No dysuria fixed urgency. No chest pain. He was started on IV fluids. He was given immediately 2 L bolus and the patient was started on insulin drip is currently running at 9 units an hour. He is also on normal saline at rate of 200 and hour. New onset diabetes mellitus and new onset DKA in this patient. No history of abdominal tumors or alcoholism. He is awake and alert and is following commands and answering questions appropriately. He is known to have diabetes hyperlipidemia. On today's evaluation of 4999 2019, the patient is looking well. No complaints. No nausea. No vomiting. No abdominal pain. No chest pain. He was treated for DKA and anion gap metabolic acidosis is recovered and the patient was taken off the insulin drip. This morning, the serum bicarb is up to 17. Then I gap is at 10. Sodium levels of 132. White cell count at 6.7. LFTs are within normal limits. The amylase and lipase were nonelevated. The patient underwent a CAT scan of the abdomen and pelvis that showed gallbladder sludge without evidence of any cholecystitis, no other significant abnormalities have been noted other than some renal lesion/cyst and small hiatal hernia and possibly some gastric wall thickening. The patient is currently on Levemir insulin along with signs. Coverage and the patient is going to get some diabetic education. His HbA1c from yesterday was 12.1. Electrodes are all been replaced and the phosphorus up to 2.9 and potassium level is up to 4.2. Objective - Vital Signs Vital signs: Vital Signs Temp 97.7 F 11/09/19 08:00 Pulse 78 11/09/19 03:00 Resp 18 11/09/19 08:00 BP 123/83 11/09/19 08:00 Pulse Ox 99 11/09/19 03:00 Intake & Output 11/08/19 11/09/19 11/09/19 18:59 06:59 18:59 Intake Total 3568.857 90 Output Total 750 600 Balance 2818.857 -510 Weight 95.3 kg Intake: IV 1700 90 D5-0.45% NaCl with KCl 1150 50 20Meq/l 1,000 ml @ 150 mls/hr IV .[id number] ALEX Rx# :[id number] Sodium Chloride 0.9% 1, 550 40 000 ml @ 200 mls/hr IV . Q5H ALEX Rx#:[id number] Intake, IV Titration 118.857 Amount Insulin Regular 100 unit 118.857 In Sodium Chloride 0.9% 100 ml @ 0.1 UNITS/KG/HR 9.85 mls/hr IV .[id number] ALEX Rx#:[id number] Oral 1750 Output: Urine 750 600 Other: Voiding Method Toilet Toilet Toilet Urinal Urinal Urinal # Voids 2 - Exam The patient appeared well nourished and normally developed. Vital signs as documented. Head exam is unremarkable. No scleral icterus or corneal arcus noted. Neck is without jugular venous distension, thyromegaly, or carotid bruits. Carotid upstrokes are brisk bilaterally. Lungs are clear to auscultation and percussion. Cardiac exam reveals the PMI to be normally sized and situated. Rhythm is regular. First and second heart sounds normal. No murmurs, rubs or gallops. Abdominal exam reveals normal bowel sounds, no masses, no organomegaly and no aortic enlargement. Extremities are nonedematous and both femoral and pedal pulses are normal. - Labs CBC & Chem 7: 11/09/19 03:53 11/09/19 03:53 Labs: Abnormal Lab Results - Last 24 Hours (Table) 11/08/19 11/08/19 11/08/19 Range/Units 14:08 15:10 15:58 RBC (4.30-5.90) m/uL Hct (39.0-53.0) % Sodium 131 L (137-145) mmol/L Potassium 3.3 L (3.5-5.1) mmol/L Carbon Dioxide 18 L (22-30) mmol/L Glucose 118 H (74-99) mg/dL POC Glucose (mg/dL) 223 H 191 H (75-99) mg/dL Calcium 8.3 L (8.4-10.2) mg/dL Phosphorus 1.3 L (2.5-4.5) mg/dL Total Protein 5.8 L (6.3-8.2) g/dL Albumin 3.4 L (3.5-5.0) g/dL 11/08/19 11/08/19 11/08/19 Range/Units 16:07 17:11 18:21 RBC (4.30-5.90) m/uL Hct (39.0-53.0) % Sodium (137-145) mmol/L Potassium (3.5-5.1) mmol/L Carbon Dioxide (22-30) mmol/L Glucose (74-99) mg/dL POC Glucose (mg/dL) 146 H 154 H 163 H (75-99) mg/dL Calcium (8.4-10.2) mg/dL Phosphorus (2.5-4.5) mg/dL Total Protein (6.3-8.2) g/dL Albumin (3.5-5.0) g/dL 11/08/19 11/09/19 11/09/19 Range/Units 20:17 03:53 03:53 RBC 4.19 L (4.30-5.90) m/uL Hct 38.7 L (39.0-53.0) % Sodium 132 L (137-145) mmol/L Potassium (3.5-5.1) mmol/L Carbon Dioxide 17 L (22-30) mmol/L Glucose 200 H (74-99) mg/dL POC Glucose (mg/dL) 182 H (75-99) mg/dL Calcium 8.2 L (8.4-10.2) mg/dL Phosphorus (2.5-4.5) mg/dL Total Protein 5.3 L (6.3-8.2) g/dL Albumin 3.1 L (3.5-5.0) g/dL 05/12/20 05/12/20 Range/Units 06:30 11:41 RBC (4.30-5.90) m/uL Hct (39.0-53.0) % Sodium (137-145) mmol/L Potassium (3.5-5.1) mmol/L Carbon Dioxide (22-30) mmol/L Glucose (74-99) mg/dL POC Glucose (mg/dL) 245 H 254 H (75-99) mg/dL Calcium (8.4-10.2) mg/dL Phosphorus (2.5-4.5) mg/dL Total Protein (6.3-8.2) g/dL Albumin (3.5-5.0) g/dL Assessment and Plan Plan: 1 DKA in a patient who is been diagnosed having a new onset diabetes mellitus, recovered 2 anion gap metabolic acidosis secondary to above, recovered 3 elevated hemoglobin likely secondary to hemoconcentration 4 hypertension 5 hyperlipidemia 6 electrodes imbalance, improved 7 hemoglobin A1c of 12.1 Plan Levemir insulin 10 units daily along with Os-Mendoza coverage IV fluids will be discontinued and the patient will be asked to encourage oral intake Diabetic education Resume home medications CAT scan of the abdomen and pelvis was noted Possible discharge home today, to be followed up by the primary care physician
--- NOTE | 2019-11-09 15:27 | CDI ---
Documentation Clarification Form Date: 11/09/2019 03:00:07 PM From: Yajaira Jacob RN, CCDS Admit Date: 11/08/2019 05:06:00 AM Patient Name: Indio Logan Visit Number: [id number] Discharge Date: ATTENTION: The Clinical Documentation Specialists (CDI) and [facility] Coding Staff appreciate your assistance in clarifying documentation. Please respond to the clarification below the line at the bottom and electronically sign. The CDI & [facility] Coding staff will review the response and follow-up if needed. Please note: Queries are made part of the Legal Health Record. If you have any questions, please contact the author of this message via ITS. Dr. Beti Bakernam The patient new onset diabetes, as indicated in the H/P on 11/07 and continue in subsequent progress note and further specificity is requested if known. History/Risk Factors: Hypertension, Hyperlipidemia Clinical Indicators: 69-year-old male present on 11/07 with reports of fatigue, polydipsia, polyuria. He states that symptoms have been getting progressively worse over the past 2 weeks. He complains of feeling little lightheaded when he stands. 11/07 Vital signs on admission 138/72 121 20 97.5 11/07 Labs: RBS 504 Acetone, Qual -positive UA 4+ Glucose, 4+ Ketones; Hemoglobin A1c 12.1 11/07 Blood gas: VBG pH 7.17, pCO2 36, HCO3 12 Treatment: ICU/Telemetry monitoring .9 Saline 2000 IV mls bolus D5%1/2 ns kcl IV @ 150 mls/hr Insulin 10 Unit IV once Insulin drio at 0.1 units/kg/hr Diabetic Education (handout provided) Blood sugar Checks ACHS In order to capture the severity of Illness and necessary documentation specificity, please clarify: DM Type 1 DM Type 2 Other, please specify Unable to Determine Please document any body system complications or specific manifestations related to the diabetes: (Last Revision: March 2017) type 2 MTDD
== END 2019-11-09 15:29 | disposition home or self-care (01) | DRG 639 ==
LOC: EC 01:37 → 2SICU 05:06
PROVIDERS: ADMIT Internal Medicine; ATTEND Internal Medicine
DX: E11.10 Type 2 diabetes mellitus with ketoacidosis without coma (principal); E78.5 Hyperlipidemia, unspecified; D75.1 Secondary polycythemia; I10 Essential (primary) hypertension; E86.0 Dehydration; Z96.652 Presence of left artificial knee joint; F41.9 Anxiety disorder, unspecified; K44.9 Diaphragmatic hernia without obstruction or gangrene; Z66 Do not resuscitate; Z98.890 Other specified postprocedural states; Z87.442 Personal history of urinary calculi; Z80.3 Family history of malignant neoplasm of breast; Z11.59 Encounter for screening for other viral diseases; Z83.3 Family history of diabetes mellitus; Z79.899 Other long term (current) drug therapy; Z79.4 Long term (current) use of insulin; Z82.49 Family history of ischemic heart disease and other diseases of the circulatory system; Z80.0 Family history of malignant neoplasm of digestive organs
CPT/HCPCS: 36415; 71045; 74176; 80051; 80053; 81001; 82009; 82150; 82565; 82803; 82947; 83036; 83690; 84100; 84520; 85025; 85027; 86341; 87635; 96360; 96361; 99285

== ENCOUNTER → 2022-01-09 | Outpatient (CLI) | payer MEDICARE ==
--- NOTE | 2022-01-09 11:30 | P.SLEEP ---
History of Present Illness DATE: 01/09/2022 CONSULTATION/NEW PATIENT EVALUATION HISTORY OF PRESENT ILLNESS/SLEEP-WAKE EVALUATION: 71year gentleman had been e valuated in the sleep center for possible obstructive sleep apnea hypopnea syndrome and insomnia. SLEEP SCHEDULE/falling asleep: Usually sleep schedule from 9 9:30 PM until 78 AM. By patient falling asleep only around 11 PM he is taking zolpidem 5 mg before going to bed to help him with the falling to sleep. He doesn't have TV in bedroom. DURING SLEEP: Patient sleeps in different positions including back site and on the chair. He wakes up from sleep up to 3 times with nocturia and panic attacks No history of hypnogogical hallucinations, sleep paralysis, or cataplexy. DURING THE DAY/WAKE STATE: Patient was able about his sleep. He may take naps in the mid afternoon once a week. [place] sleepiness scale is for.[]. PAST MEDICAL HISTORY: Hypertension, kidney stone, diabetes mellitus, migraine, seasonal ALLERGY, hyperlipidemia, prostate CA, irritable bowel syndrome. PAST SURGICAL HISTORY: Prostatic ectomy for treatment of prostate CA in 2006. MEDICATIONS: Zolpidem 5 mg at bedtime, clonazepam 1 mg half tablet in the morning and 2 at night. Allopurinol 300 mg once a day,bisoprolol 2.5 mg6.25 mg once a day, metformin 500 mg twice a day, Januvia 50 mg once a day, Zyrtec, exedrine. SOCIAL HISTORY: Negative for smoking, alcohol consumption occasional. FAMILY HISTORY: Heart problems, arthritis, fibromyalgia. REVIEW OF SYSTEMS: Difficult to initiate sleep, multiple awakenings from sleep with nocturia and panic attacks. No fevers. No double vision. No recent chest pain. No shortness of breath. No abdominal pain. No bleeding episodes. No blood in urine. No seizure episodes. PHYSICAL EXAMINATION: GENERAL: A pleasant patient without any distress. VITAL SIGNS: BP 140/86, HR 73, RR 16, weight 202 pounds, height 5 foot 8-1/2 inches, body mass index 30.2. HEENT: PERRLA, EOMI. Evaluation of oropharynx showed tongue protrudes midline, low position of soft palate Mallampati 4. NECK: Supple. No JVD. Thyroid is not palpable. 17-1/2 inches in circumference. LUNGS: Clear to percussion and to auscultation. Good air exchange. No wheezing or rhonchi. HEART: S1, S2 regular. No murmurs, gallops or rubs. ABDOMEN: Soft and nontender. Bowel sounds are present. No organomegaly appreciated. EXTREMITIES: No clubbing or cyanosis. VASCULAR SONOGRAPHER: Awake, alert, and oriented x3. Cranial nerves 2 to 7 intact. There is no fasciculation or atrophy noted. No focal deficits observed. ASSESSMENT: 1. Multiple awakenings from sleep with the nocturia. Extremely low position of soft palate Mallampati 4, white neck. Obstructive sleep apnea- hypopnea syndrome. 2. Difficulties to initiate sleep. Psychophysiological insomnia and possibly insomnia secondary to anxiety. 3 hypertension. 4. Diabetes mellitus. 5 mild obesity body mass index 30.2. 6. History of kidney stone from uric acid. 7. Migraine. 8. Hyperlipidemia. 9. History of prostate CVA, status post post prostatic ectomy. 10. Seasonal ALLERGY. 11. Status post left knee replaced. 12 episodes of irritable bowel syndrome. PLAN: 1. Polysomnography for evaluation of patient's breathing during sleep. 2. CPAP/BiPAP titration if sleep study confirms obstructive sleep apnea- hypopnea syndrome. 3. Preferable position during sleep on the side. 4. No driving if patient feels any sleepiness. Patient is aware of civil and criminal liability for unsafe driving. 5. Sleep hygiene with regular sleep time for at least 7.5-8 hours. 6. Watching weight. 7. I discussed with patient psychological techniques for treatment of insomnia including stimulus control, paradoxical intention. She may go to bed later at around 11 PM. Better to play golf in the morning hours, not afternoon with the goal to move sleep cycle slightly earlier. Sincerely, Freddy Pearson MD, PhD, FAASM. Diplomat of [place] [employer], Sleep Medicine Board by [place] [employer] [place] [employer] Installer of [facility] [place] Past Medical History Past Medical History: Diabetes Mellitus, Hyperlipidemia, Hypertension Additional Past Medical History / Comment(s): kidney stones, anxiety History of Any Multi-Drug Resistant Organisms: None Reported Past Surgical History: Joint Replacement, Prostate Surgery Additional Past Surgical History / Comment(s): Left knee total knee - 2007, revision - 2012. TURP - 2006 Past Anesthesia/Blood Transfusion Reactions: No Reported Reaction Past Psychological History: No Psychological Hx Reported Past Alcohol Use History: None Reported Past Drug Use History: None Reported - Past Family History Mother Family Medical History: AICD/Pacemaker, Diabetes Mellitus, Thyroid Disorder Additional Family Medical History / Comment(s): Colon cancer, breast cancer, CHF Father Additional Family Medical History / Comment(s): ALS Medications and Allergies Home Medications Medication Instructions Recorded Confirmed Type Aspirin/Acetaminophen/Caffeine 1 tab PO BID PRN 11/08/19 12/08/19 History [Excedrin Migraine Caplet] Bisoprolol-Hctz 2.5-6.25 mg [Ziac 1 tab PO DAILY 11/08/19 12/08/19 History 2.5-6.25 MG] Cetirizine HCl [Zyrtec] 10 mg PO DAILY PRN 11/08/19 12/08/19 History Rosuvastatin Calcium 10 mg PO DAILY 11/08/19 12/08/19 History Zolpidem [Ambien] 5 mg PO HS PRN 11/08/19 12/08/19 History allopurinoL [Zyloprim] 300 mg PO DAILY 11/08/19 12/08/19 History clonazePAM 2 mg PO HS 11/08/19 12/08/19 History clonazePAM [KlonoPIN] 0.5 mg PO QAM 11/08/19 12/08/19 History Insulin Detemir [Levemir Flextouch] 10 units SQ AC-BRKFST #1 pen 11/09/19 12/08/19 Rx Allergies Allergy/AdvReac Type Severity Reaction Status Date / Time No Known Allergies Allergy Verified 12/08/19 15:40 Sleep Note - Sleep Note Sleep Note: Temperature: Pulse Rate: Respiratory Rate: Blood Pressure: SpO2: Height: Weight: BMI: Neck Circumference:
== END ==
LOC: SLEEP 10:32
PROVIDERS: ATTEND Internal Medicine
DX: G47.33 Obstructive sleep apnea (adult) (pediatric) (principal); F51.04 Psychophysiologic insomnia; I10 Essential (primary) hypertension; E11.9 Type 2 diabetes mellitus without complications; E66.01 Morbid (severe) obesity due to excess calories; Z68.30 Body mass index [BMI] 30.0-30.9, adult; G43.909 Migraine, unspecified, not intractable, without status migrainosus; E78.5 Hyperlipidemia, unspecified; K58.9 Irritable bowel syndrome, unspecified; Z85.46 Personal history of malignant neoplasm of prostate; Z90.79 Acquired absence of other genital organ(s); Z87.442 Personal history of urinary calculi; Z96.652 Presence of left artificial knee joint; Z79.4 Long term (current) use of insulin
CPT/HCPCS: 99211

== ENCOUNTER 2022-11-16 14:59 | Emergency (ER) | payer MEDICARE ==
[2022-11-16 15:13] VITALS: RESP 18; TEMP 97.4
[2022-11-16] MEDS ORDERED: SODIUM CHLORIDE 0.9% 1,000 ML IV STA (15:21)
[2022-11-16] MEDS ORDERED: MORPHINE SULFATE 4 MG/ML SYRINGE IVP STA ×2 (16:03→18:07)
[2022-11-16] MEDS ORDERED: KETOROLAC 15 MG/ML 1 ML VIAL IVP STA (16:03)
[2022-11-16 16:07] LABS: Basophils % (A) 0 %; Eosinophils % (A) 0 %; HCT 45.6 % (39.0-53.0); HGB 15.6 gm/dL (13.0-17.5); Lymphocytes # (A) 0.4 k/uL (1.0-4.8); Lymphocytes % (A) 4 %; MCH 32.1 pg (25.0-35.0); MCHC 34.2 g/dL (31.0-37.0); MCV 93.6 fL (80.0-100.0); Mean Platelet Volume 8.2; Monocytes # (A) 0.4 k/uL (0-1.0); Monocytes % (A) 4 %; Neutrophils # (A) 9.2 k/uL (1.3-7.7); Neutrophils % (A) 91 %; Platelet Count 219 k/uL (150-450); RBC 4.87 m/uL (4.30-5.90); RDW 12.9 % (11.5-15.5); WBC 10.1 k/uL (3.8-10.6)
--- NOTE | 2022-11-16 16:09 | ED ---
Abdominal Pain HPI - General Chief Complaint: Abdominal Pain Stated Complaint: Abd/back pain Time Seen by Provider: 11/16/22 15:21 Source: patient, RN notes reviewed, old records reviewed Mode of arrival: ambulatory Limitations: no limitations - History of Present Illness Initial Comments: This is a 72-year-old male to the ER today. Presents today for evaluation abdominal pain abdominal pain severe right lower quadrant right flank pain. This pain does radiate to his groin.. History of kidney stones feels like this is recurrent kidney stones. Patient has nausea without vomiting. Patient did get sweaty when the pain started this morning that is resolved. Symptoms are improved with Tylenol at home MD Complaint: abdominal pain, flank pain (Right-sided) -: hour(s) Location: RLQ, suprapubic, R flank Radiation: R flank Migration to: suprapubic Severity: severe Severity scale (1-10): 8 Quality: stabbing Consistency: constant Improves With: nothing Worsens With: nothing Context: other (0) Associated Symptoms: nausea Treatments Prior to Arrival: other (0) - Related Data Home Medications Medication Instructions Recorded Confirmed Aspirin/Acetaminophen/Caffeine 1 tab PO BID PRN 11/08/19 12/08/19 [Excedrin Migraine Caplet] Bisoprolol-Hctz 2.5-6.25 mg [Ziac 1 tab PO DAILY 11/08/19 12/08/19 2.5-6.25 MG] Cetirizine HCl [Zyrtec] 10 mg PO DAILY PRN 11/08/19 12/08/19 Rosuvastatin Calcium 10 mg PO DAILY 11/08/19 12/08/19 Zolpidem [Ambien] 5 mg PO HS PRN 11/08/19 12/08/19 allopurinoL [Zyloprim] 300 mg PO DAILY 11/08/19 12/08/19 clonazePAM 2 mg PO HS 11/08/19 12/08/19 clonazePAM [KlonoPIN] 0.5 mg PO QAM 11/08/19 12/08/19 Previous Rx's Medication Instructions Recorded Insulin Detemir [Levemir Flextouch] 10 units SQ AC-BRKFST #1 pen 11/09/19 Allergies Allergy/AdvReac Type Severity Reaction Status Date / Time No Known Allergies Allergy Verified 11/16/22 15:13 Review of Systems ROS Statement: Those systems with pertinent positive or pertinent negative responses have been documented in the HPI. ROS Other: All systems not noted in ROS Statement are negative. Past Medical History Past Medical History: Diabetes Mellitus, Hyperlipidemia, Hypertension Additional Past Medical History / Comment(s): kidney stones, anxiety, DKA. History of Any Multi-Drug Resistant Organisms: None Reported Past Surgical History: Joint Replacement, Prostate Surgery Additional Past Surgical History / Comment(s): Left knee total knee - 2007, revision - 2012. TURP - 2006 Past Anesthesia/Blood Transfusion Reactions: No Reported Reaction Past Psychological History: No Psychological Hx Reported Past Alcohol Use History: None Reported Past Drug Use History: None Reported - Past Family History Mother Family Medical History: AICD/Pacemaker, Diabetes Mellitus, Thyroid Disorder Additional Family Medical History / Comment(s): Colon cancer, breast cancer, CHF Father Additional Family Medical History / Comment(s): ALS General Exam Limitations: no limitations General appearance: alert, in no apparent distress, anxious Head exam: Present: atraumatic, normocephalic, normal inspection Eye exam: Present: normal appearance, PERRL, EOMI. Absent: scleral icterus, conjunctival injection, periorbital swelling ENT exam: Present: normal exam, mucous membranes moist Neck exam: Present: normal inspection. Absent: tenderness, meningismus, lymphadenopathy Respiratory exam: Present: normal lung sounds bilaterally. Absent: respiratory distress, wheezes, rales, rhonchi, stridor Cardiovascular Exam: Present: regular rate, normal rhythm, normal heart sounds. Absent: systolic murmur, diastolic murmur, rubs, gallop, clicks GI/Abdominal exam: Present: soft, normal bowel sounds. Absent: distended, tenderness, guarding, rebound, rigid Extremities exam: Present: normal inspection, full ROM, normal capillary refill. Absent: tenderness, pedal edema, joint swelling, calf tenderness Back exam: Present: normal inspection Neurological exam: Present: alert, oriented X3, CN II-XII intact Psychiatric exam: Present: normal affect, normal mood Skin exam: Present: warm, dry, intact, normal color. Absent: rash Course Vital Signs 11/16/22 11/16/22 15:09 17:23 Temperature 97.4 F L Pulse Rate 55 L 64 Respiratory 18 18 Rate Blood Pressure 153/90 149/98 O2 Sat by Pulse 99 98 Oximetry - Reevaluation(s) Reevaluation #1: 11/16/22 17:10 Medical record is reviewed Reevaluation #2: 11/16/22 17:10 Patient's pain is improved Reevaluation #3: 11/16/22 17:11 Patient informed results questions have been answered Reevaluation #4: 11/16/22 17:11 Was pt. sent in by a medical professional or institution? @ -no Did you speak to anyone other than the patient for history? @ -no Did you review nursing and triage notes? @ -agree Were old charts reviewed? @ -no Differential Diagnosis? @ -prior EKG interpreted by me (3pts min.)? @ -yes X-rays interpreted by me (1pt min.)? @ -no CT interpreted by me (1pt min.)? @ -no U/S interpreted by me (1pt. min.)? @ -no What testing was considered but not performed? (CT, X-rays, U/S, labs)? Why? @ -no What meds were considered but not given? Why? @ -no Did you discuss the management of the patient with other professionals? @ -no Did you reconcile home meds? @ -no Was smoking cessation discussed for >3mins.? @ -no Was critical care preformed (if so, how long)? @ -no Were there social determinants of health that impacted care today? How? (Homelessness, low income, unemployed, alcoholism, drug addiction, transportation, low edu. Level, literacy, decrease access to med. care, senior care, rehab)? @ -no Was there de-escalation of care discussed even if they declined? (Discuss DNR or withdrawal of care, Hospice)? @ -no What co-morbidities impacted this encounter? (DM, HTN, Smoking, COPD, CAD, Cancer, CVA, Hep., AIDS, mental health diagnosis, sleep apnea, morbid obesity)? @ -none Was patient admitted / discharged? @ -72 male to the emergency department for evaluation presents today for evaluation of kidney stone, adequate current pain control otherwise feels bad not septic no UTI of fever patient can be discharged home Discharged Undiagnosed new problem with uncertain prognosis? @ -no Drug Therapy requiring intensive monitoring for toxicity (Heparin, Nitro, Insulin, Cardizem)? @ -no Were any procedures done? @ -no Diagnosis/symptom? @ -Right kidney stone Acute, or Chronic, or Acute on Chronic? @ -no Uncomplicated (without systemic symptoms) or Complicated (systemic symptoms)? @ -uncomplicated Side effects of treatment? @ -no Exacerbation, Progression, or Severe Exacerbation] @ -no Poses a threat to life or bodily function? @ -no Reevaluation #5: 11/16/22 17:11 Differential Abdominal Pain Women: Appendicitis, Cholecystitis, diverticulosis, ischemic bowel, pancreatitis, hepatitis, UTI, gastroenteritis, AAA, incarcerated hernia, bowel obstruction, constipation, inflammatory bowel, hepatitis, peptic ulcer disease, splenic infarction, perforated viscus, vulvitis, ovarian torsion, PID, kidney stone, placenta abruption, this is not meant to be an all-inclusive list Medical Decision Making - Medical Decision Making 72 male to the emergency department for evaluation abdominal pain right-sided flank pain severe abdominal pain, right-sided flank pain with positive kidney stone. Pain control patient will be discharged home - Lab Data Result diagrams: 11/16/22 15:49 11/16/22 15:49 Lab Results 11/16/22 11/16/22 11/16/22 Range/Units 15:49 15:49 15:49 WBC 10.1 (3.8-10.6) k/uL RBC 4.87 (4.30-5.90) m/uL Hgb 15.6 (13.0-17.5) gm/dL Hct 45.6 (39.0-53.0) % MCV 93.6 (80.0-100.0) fL MCH 32.1 (25.0-35.0) pg MCHC 34.2 (31.0-37.0) g/dL RDW 12.9 (11.5-15.5) % Plt Count 219 (150-450) k/uL MPV 8.2 Neutrophils % 91 % Lymphocytes % 4 % Monocytes % 4 % Eosinophils % 0 % Basophils % 0 % Neutrophils # 9.2 H (1.3-7.7) k/uL Lymphocytes # 0.4 L (1.0-4.8) k/uL Monocytes # 0.4 (0-1.0) k/uL Eosinophils # 0.0 (0-0.7) k/uL Basophils # 0.0 (0-0.2) k/uL Sodium 142 (137-145) mmol/L Potassium 4.4 (3.5-5.1) mmol/L Chloride 102 (98-107) mmol/L Carbon Dioxide 29 (22-30) mmol/L Anion Gap 11 mmol/L BUN 13 (9-20) mg/dL Creatinine 0.86 (0.66-1.25) mg/dL Est GFR (CKD-EPI)AfAm >90 (>60 ml/min/1.73 sqM) Est GFR (CKD-EPI)NonAf 88 (>60 ml/min/1.73 sqM) Glucose 146 H (74-99) mg/dL Lactic Ac Sepsis Rflx Plasma Lactic Acid Brandon 2.3 H* (0.7-2.0) mmol/L Calcium 9.0 (8.4-10.2) mg/dL Total Bilirubin 0.7 (0.2-1.3) mg/dL AST 36 (17-59) U/L ALT 35 (4-49) U/L Alkaline Phosphatase 76 (38-126) U/L Troponin I (0.000-0.034) ng/mL Total Protein 7.6 (6.3-8.2) g/dL Albumin 4.7 (3.5-5.0) g/dL Amylase 46 (30-110) U/L Lipase 58 (23-300) U/L 11/16/22 11/16/22 Range/Units 15:49 16:29 WBC (3.8-10.6) k/uL RBC (4.30-5.90) m/uL Hgb (13.0-17.5) gm/dL Hct (39.0-53.0) % MCV (80.0-100.0) fL MCH (25.0-35.0) pg MCHC (31.0-37.0) g/dL RDW (11.5-15.5) % Plt Count (150-450) k/uL MPV Neutrophils % % Lymphocytes % % Monocytes % % Eosinophils % % Basophils % % Neutrophils # (1.3-7.7) k/uL Lymphocytes # (1.0-4.8) k/uL Monocytes # (0-1.0) k/uL Eosinophils # (0-0.7) k/uL Basophils # (0-0.2) k/uL Sodium (137-145) mmol/L Potassium (3.5-5.1) mmol/L Chloride (98-107) mmol/L Carbon Dioxide (22-30) mmol/L Anion Gap mmol/L BUN (9-20) mg/dL Creatinine (0.66-1.25) mg/dL Est GFR (CKD-EPI)AfAm (>60 ml/min/1.73 sqM) Est GFR (CKD-EPI)NonAf (>60 ml/min/1.73 sqM) Glucose (74-99) mg/dL Lactic Ac Sepsis Rflx Y Plasma Lactic Acid Brandon (0.7-2.0) mmol/L Calcium (8.4-10.2) mg/dL Total Bilirubin (0.2-1.3) mg/dL AST (17-59) U/L ALT (4-49) U/L Alkaline Phosphatase (38-126) U/L Troponin I <0.012 (0.000-0.034) ng/mL Total Protein (6.3-8.2) g/dL Albumin (3.5-5.0) g/dL Amylase (30-110) U/L Lipase (23-300) U/L - Radiology Data Radiology results: report reviewed (CT abdomen and pelvis is positive for acute disease, kidney stone 3mm), image reviewed Disposition Clinical Impression: Right flank pain, Right ureteral stone Disposition: HOME SELF-CARE Condition: Good Instructions (If sedation given, give patient instructions): Kidney Stones (ED) Is patient prescribed a controlled substance at d/c from ED?: No Referrals: Russel Leal MD [Primary Care Provider] - 1-2 days Curtis Wilson MD [STAFF PHYSICIAN] - 1-2 days Time of Disposition: 17:10
[2022-11-16] MEDS ORDERED: TAMSULOSIN 0.4 MG CAP.ER.24H PO STA (16:13)
[2022-11-16 16:20] LABS: ALT 35 U/L (4-49); AST 36 U/L (17-59); African American GFR (CKD) >90 (>60 ml/min/1.73 sqM); Albumin 4.7 g/dL (3.5-5.0); Alkaline Phosphatase 76 U/L (38-126); Amylase 46 U/L (30-110); Anion Gap 11 mmol/L; Blood Urea Nitrogen 13 mg/dL (9-20); Carbon Dioxide 29 mmol/L (22-30); Chloride 102 mmol/L (98-107); Glucose 146 mg/dL (74-99); Lipase 58 U/L (23-300); Non-African American GFR(CKD) 88 (>60 ml/min/1.73 sqM); Potassium 4.4 mmol/L (3.5-5.1); Sodium 142 mmol/L (137-145); Total Bilirubin 0.7 mg/dL (0.2-1.3); Total Protein 7.6 g/dL (6.3-8.2)
--- NOTE | 2022-11-16 16:42 | CT ---
EXAMINATION TYPE: CT abdomen pelvis wo con CT DLP: 800.4 mGycm, Automated exposure control for dose reduction was used. DATE OF EXAM: 11/16/2022 4:15 PM COMPARISON: CT abdomen pelvis 11/08/2019 CLINICAL INDICATION:Male, 72 years old with history of abdominal pain; RLQ pain, hematuria TECHNIQUE: Axial CT of the abdomen and pelvis. Sagittal and coronal reformats were created on a [employer] workstation. Contrast used: None Oral contrast used: without Oral Contrast FINDINGS: LOWER CHEST: Unremarkable ABDOMEN LIVER: Right hepatic lobe 2.9 cm hypodensity with internal attenuation consistent with simple fluid. Additional 1.2 cm hypodensity inferiorly likely hepatic cysts. GALLBLADDER AND BILE DUCTS: Cholelithiasis no appreciable wall thickening or pericholecystic fluid. PANCREAS: Distal pancreatic tail 9 mm hypodensity (series 201, image 29). No pancreatic ductal dilata tion or atrophy appreciated. SPLEEN: Unremarkable. ADRENAL GLANDS: Unremarkable. KIDNEYS AND URETERS: 3 mm calculus within the mid right ureter (series 202, image 51) with mild upstr eam hydronephrosis. Additional Periureteral and perivesicular fat stranding is appreciated bilaterall y. Exophytic right lower pole renal cyst are noted anterior one is subcentimeter. Posterior exophytic cy st measures 2.6 cm with hyperdense appearance and possible layering ossified debris. Additional exoph ytic right upper pole simple renal cyst. Indeterminate exophytic left lower pole renal lesion measure s 4.2 x 4.1 cm (series 201, image 73), this is intervally increased in size from 2020 where it measur ed 3.1 cm. Additional subcentimeter exophytic cystic lesions are noted. No left hydronephrosis. Nonob structing left renal calculi are present. PELVIS BLADDER: Underdistended. Mild perivesicular fat stranding. REPRODUCTIVE: Trace hydroceles bilaterally. ABDOMEN & PELVIS STOMACH AND BOWEL: Stomach and duodenum are unremarkable. Scattered diverticula are noted throughout the colon. No evidence of bowel obstruction. PERITONEUM: No evidence of pneumoperitoneum or free fluid. Postsurgical changes in the pelvis. Bilate ral perinephric and periureteral fat stranding, right more severely affected than left. VASCULATURE: Mild atherosclerotic calcifications are present throughout the abdominal aorta and its b ranches. No evidence of aortic aneurysm. MUSCULOSKELETAL: Transitional morphology of S1. Multilevel discogenic and degenerative changes of the lumbar spine and bilateral hip joints. No aggressive osseous lesions LYMPH NODES: No gross evidence for lymphadenopathy. SOFT TISSUE/ABDOMINAL WALL: Unremarkable IMPRESSION: 1. Right 3 mm mid ureteral calculus with mild hydroureteral nephrosis. 2. Indeterminate left lower pole renal lesion is intervally increased in size from 2020. Recommend fu rther evaluation with multiphase CT/MRI renal mass protocol. Additional bilateral cystic lesions of v arying sizes and complexity can also be evaluated at that time. 3. 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 Attention on follow-up. 4. Nonobstructing left renal calculi. 5. Additional incidental findings as detailed above.
[2022-11-16 17:24] VITALS: BP 149/98; PULSE 64
[2022-11-16] MEDS ORDERED: IBUPROFEN 600 MG STARTER PACK 4 TAB BTL PO STA (17:55)
[2022-11-16] MEDS ORDERED: ACET/COD 300 MG/30 MG STARTER PACK 6 TAB BTL PO STA (17:55)
[2022-11-16] MEDS ORDERED: ONDANSETRON 4 MG ODT STARTER PACK 2 TAB BTL PO STA (17:55)
== END 2022-11-16 18:20 | disposition home or self-care (01) ==
LOC: EC 14:59
DX: N13.2 Hydronephrosis with renal and ureteral calculous obstruction (principal); I10 Essential (primary) hypertension; E11.9 Type 2 diabetes mellitus without complications; E78.5 Hyperlipidemia, unspecified; F41.9 Anxiety disorder, unspecified; Z79.82 Long term (current) use of aspirin; Z79.899 Other long term (current) drug therapy
CPT/HCPCS: 36415; 80053; 82150; 83605; 83690; 84484; 85025; 74176; 99284; 96374; 96375; 96376; 96361; J2270; J1885; S0119

== ENCOUNTER → 2023-01-07 | Outpatient (CLI) | payer MEDICARE ==
--- NOTE | 2023-01-08 14:05 | MR ---
EXAMINATION TYPE: MR abdomen wo/w con DATE OF EXAM: 01/07/2023 6:32 PM INDICATION: Patient age:Male; 72 years old; Reason for study: N28.9 K86.89; eRenal and Pancreatic lesions, Abn CT done 11-16-2022 COMPARISON: CT scan abdomen from 11/16/2022, 11/08/2019 TECHNIQUE: Multiplanar multi-sequence imaging was performed without contrast. Post contrast imaging was performed. Post IV contrast subtraction images were also submitted for review. IV Contrast: 9 cc Gadavist FINDINGS: LOWER CHEST: No gross irregularity. ABDOMEN Liver: Right hepatic lobe cyst with thin septations measuring up to 30 mm. No abnormal postcontrast e nhancement. No abnormal postcontrast enhancement. Additional simple appearing cysts in segment IVb. Gallbladder and Bile ducts: The gallbladder is distended with multiple large and small gallstones pre sent. The common bile duct is without evidence for choledocholithiasis. Pancreas: Main pancreatic duct is within normal limits. Pancreatic tail 14 mm partially cystic lesion is present and has some peripheral enhancement. Spleen: Unremarkable. Adrenal glands: Unremarkable. Kidneys: Right: Multiple high T2 signal renal cyst. Additionally there is a right inferior pole low T2 signal 29 mm cyst which demonstrates intrinsic high T1 signal compatible with hemorrhagic/proteinaceous cyst . No suspicious right renal lesions. Left: Heterogenous appearing left inferior pole lesion measuring 41 x 38 mm. There is heterogenous po stcontrast enhancement. No evidence for renal vein thrombus. There are additional left high T1 intrinsic signal cysts present compatible with hemorrhagic/proteina ceous cyst. No obstructive uropathy visualized. Stomach and Bowel: No evidence for bowel obstruction.. Peritoneum: No evidence Of pneumoperitoneum or free fluid. Vasculature: Unremarkable. No aortic aneurysm. Musculoskeletal: The osseous structures appear intact. Lymph Nodes: No gross evidence for lymphadenopathy. Abdominal wall: Unremarkable. IMPRESSION: 1. Left inferior pole solid renal mass measuring up to 41 mm. Highly concerning for solid renal neop lasm such as renal cell carcinoma. 2. Pancreatic tail lesion measuring up to 14 mm is identified with some peripheral enhancement centr al nonenhancement. Findings could represent pancreatic cystic neoplasm. [facility] with MRI pancreatic mass protocol to ensure stability. 3. Bilateral proteinaceous/hemorrhagic renal cyst. Additionally, bilateral simple appearing renal cy sts. 4. No evidence for obstructive uropathy. 5. Extensive cholelithiasis. 6. Simple appearing liver cysts.
== END | disposition home or self-care (01) ==
LOC: RADMRIMAIN 17:16
PROVIDERS: ATTEND Internal Medicine
DX: N28.1 Cyst of kidney, acquired (principal); K86.89 Other specified diseases of pancreas; N28.89 Other specified disorders of kidney and ureter; K80.20 Calculus of gallbladder without cholecystitis without obstruction; K76.89 Other specified diseases of liver
CPT/HCPCS: 74183; A9585

== ENCOUNTER → 2023-02-26 | Outpatient (CLI) | payer MEDICARE ==
[2023-02-26 15:16] LABS: Basophils # (A) 0.03 X 10*3/uL (0.00-0.10); Basophils % (A) 0.6 %; Eosinophils # (A) 0.18 X 10*3/uL (0.04-0.35); Eosinophils % (A) 3.6 %; HCT 49.5 % (39.6-50.0); HGB 16.8 d/dL (13.0-17.0); Lymphocytes # (A) 0.99 X 10*3/uL (0.90-5.00); MCH 31.8 pg (27.0-32.0); MCHC 33.9 d/dL (32.0-37.0); MCV 93.6 FL (80.0-97.0); Mean Platelet Volume 10.2 FL (9.5-12.2); Monocytes # (A) 0.47 X 10*3/uL (0.20-1.00); Monocytes % (A) 9.5 %; NRBC Per 100 WBC 0 X 10*3/uL (0.00-0.01); Neutrophils # (A) 3.28 X 10*3/uL (1.80-7.70); Neutrophils % (A) 66.1 %; Platelet Count 201 X 10*3/uL (140-440); RBC 5.29 X 10*6/uL (4.40-5.60); RDW 13.1 % (11.5-14.5); WBC 4.96 X 10*3/uL (4.50-10.00)
[2023-02-26 15:29] LABS: BUN/Creat Ratio 15.22 Ratio (12.00-20.00); Blood Urea Nitrogen 13.7 mg/dL (9.0-27.0); Calcium 9.7 mg/dL (8.7-10.3); Carbon Dioxide 26.3 mmol/L (21.6-31.8); Chloride 107 mmol/L (96-109); Glucose 111 mg/dL (70-110); Potassium 4.1 mmol/L (3.5-5.5); Sodium 144 mmol/L (135-145)
[2023-02-26 15:31] LABS: Appearance,Urine Clear (Clear); Bilirubin,Urine Negative (Negative); Blood,Urine Negative (Negative); Color,Urine Yellow (Yellow); Ketones,Urine Negative (Negative); Nitrite,Urine Negative (Negative); Specific Gravity,Urine 1.025 (1.001-1.030); Urobilinogen,Urine 0.2 E.U./DL
== END | disposition home or self-care (01) ==
LOC: LABPAT 11:24
PROVIDERS: ATTEND Urology
DX: Z01.812 Encounter for preprocedural laboratory examination (principal); D41.02 Neoplasm of uncertain behavior of left kidney; R31.29 Other microscopic hematuria
CPT/HCPCS: 80048; 81003; 85025; 87086

== ENCOUNTER 2023-03-06 09:07 | Observation (INO) | payer MEDICARE ==
--- NOTE | 2023-03-06 07:55 | P.HPIHPCON ---
History of Present Illness H&P Date: 03/06/23 Chief Complaint: Left renal mass This is a 72 year old male with history of a 4.1 cm left-sided renal mass. Reviewed images with her in details, discussed this is concerning for renal cell carcinoma. Option of partial nephrectomy, versus cryoablation, versus observation was discussed in detail. She agreed to proceed with a robotic left- sided partial nephrectomy aware of the risk which was met limited to bleeding, infection, injury to nearby organs. Discussed also potential of converting into a radical nephrectomy. Discussed if we do perform radical nephrectomy and potential of needing hemodialysis and the short and long-term. Risk of anesthesia was also discussed. She should all the risk and agreed to proceed Consent for Procedure: I have explained the operation/procedure to the patient, including the risks, benefits, side effects, alternative therapies (including not receiving the proposed treatment or service), the likelihood of the patient achieving his/her goals, and potential recuperation problems for the procedure/sedation/analgesia, as well as any blood products, if indicated. I also explained to the patient the risks, benefits and side effects of the alternatives, as well as the risks related to not receiving the proposed procedure, care, treatment, or services. Past Medical History Past Medical History: Cancer, Diabetes Mellitus, Hyperlipidemia, Hypertension Additional Past Medical History / Comment(s): kidney stones, anxiety, DKA. prostate cancer History of Any Multi-Drug Resistant Organisms: None Reported Past Surgical History: Joint Replacement, Prostate Surgery Additional Past Surgical History / Comment(s): Left knee total knee - 2007, revision - 2012. TURP - 2006 Past Anesthesia/Blood Transfusion Reactions: No Reported Reaction Smoking Status: Never smoker - Past Family History Mother Family Medical History: AICD/Pacemaker, Diabetes Mellitus, Thyroid Disorder Additional Family Medical History / Comment(s): Colon cancer, breast cancer, CHF Father Additional Family Medical History / Comment(s): ALS Medications and Allergies Home Medications Medication Instructions Recorded Confirmed Type Bisoprolol-Hctz 2.5-6.25 mg [Ziac 1 tab PO DAILY 11/08/19 03/04/23 History 2.5-6.25 MG] Cetirizine HCl [Zyrtec] 10 mg PO DAILY PRN 11/08/19 03/04/23 History Rosuvastatin Calcium 10 mg PO DAILY 11/08/19 03/04/23 History allopurinoL [Zyloprim] 300 mg PO DAILY 11/08/19 03/04/23 History clonazePAM 2 mg PO HS 11/08/19 03/04/23 History clonazePAM [KlonoPIN] 0.5 mg PO QAM 11/08/19 03/04/23 History metFORMIN HCL [Glucophage] 500 mg PO BID 03/04/23 03/04/23 History sitaGLIPtin [Januvia] 50 mg PO DAILY 03/04/23 03/04/23 History Allergies Allergy/AdvReac Type Severity Reaction Status Date / Time No Known Allergies Allergy Verified 03/04/23 10:13 Surgical - Exam - General no distress, no pain - Eyes normal ocular movement, no pale - ENT normal nares, normal mucosa - Respiratory normal expansion, normal respiratory effort - Abdomen Abdomen: soft, non tender - Psychiatric oriented to time, oriented to person, oriented to place Assessment and Plan Assessment: OR for left-sided robotic partial nephrectomy, possible radical nephrectomy
[~2023-03-06 09:07] MED LIST: DEXAMETHASONE SOD PHOSPHATE 4 MG/ML 1 ML VIAL IV ONE; LIDOCAINE 1% (10MG/ML) FOR IV START INTRADERMA PRN; ONDANSETRON 4 MG/2 ML VIAL IVP ONE; fentaNYL (PF) 50 MCG/ML 2 ML AMP IV PRN
[2023-03-06] MEDS: LACTATED RINGERS 1,000 ML IV SCH ×2 (09:49→16:35)
[2023-03-06 09:53] LABS: Glucose,Whole Blood 122 mg/dL (70-110)
[2023-03-06] MEDS ORDERED: MIDAZOLAM 2 MG/2 ML VIAL IVP ONE (10:37)
[2023-03-06] MEDS ORDERED: SUCCINYLCHOLINE CHLORIDE 200 MG/10 ML VIAL IV ONE (12:15)
[2023-03-06] MEDS ORDERED: ROPIVACAINE 5 MG/ML 30 ML VIAL ONE (12:15)
[2023-03-06] MEDS ORDERED: DEXAMETHASONE SOD PHOSPHATE 4 MG/ML 1 ML VIAL ONE (12:15)
[2023-03-06] MEDS ORDERED: NEOSTIGMINE 1 MG/ML 10 ML VIAL ONE (12:15)
[2023-03-06] MEDS ORDERED: GLYCOPYRROLATE 0.2 MG/ML 2 ML VIAL ONE (12:15)
[2023-03-06] MEDS ORDERED: PROPOFOL 10 MG/ML 20 ML VIAL IV ONE (12:15)
[2023-03-06] MEDS ORDERED: hydrALAZINE HCL 20 MG/ML 1 ML VIAL ONE (12:15)
[2023-03-06] MEDS ORDERED: HYDROmorphone (PF) 1 MG/ML ONE (12:15)
[2023-03-06] MEDS ORDERED: LABETALOL 5 MG/ML VIAL MDV ONE (12:15)
[2023-03-06] MEDS ORDERED: MANNITOL 25% 12.5 GM/50 ML VIAL ONE (12:15)
[2023-03-06] MEDS ORDERED: fentaNYL (PF) 50 MCG/ML 2 ML AMP ONE (12:15)
[2023-03-06] MEDS ORDERED: ROCURONIUM 10 MG/ML (5 ML VIAL) IV ONE (12:15)
[2023-03-06] MEDS ORDERED: SODIUM CHLORIDE 0.9% (PF) 10 ML VIAL ONE (12:15)
[2023-03-06] MEDS ORDERED: MIDAZOLAM 2 MG/2 ML VIAL ONE (12:15)
[2023-03-06] MEDS ORDERED: LORATADINE 10 MG TAB PO PRN (12:20)
[2023-03-06] MEDS ORDERED: ONDANSETRON 4 MG/2 ML VIAL IVP PRN (12:21)
[2023-03-06] MEDS ORDERED: HYDROmorphone 1 MG/ML 1 ML SYRINGE IVP PRN (12:21)
[2023-03-06] MEDS ORDERED: LIDOCAINE 0.5%-EPI 1:200,000 50 ML VIAL SQ ONE ×3 (13:11→15:04)
[2023-03-06] MEDS ORDERED: LACTATED RINGERS 1,000 ML IV ONE (14:16)
--- NOTE | 2023-03-06 14:59 | P.OP ---
Date of Procedure: 03/06/23 Preoperative Diagnosis: Left renal mass Postoperative Diagnosis: Same Procedure(s) Performed: Robotic-assisted laparoscopic left partial nephrectomy Implants: none Anesthesia: JOHN Surgeon: Syed Barraza Professor Of Geology #1: Giovanni Macario Estimated Blood Loss (ml): 100 Pathology: other (Left renal mass) Condition: stable Disposition: PACU Indications for Procedure: This is a 72 year old male with history of a 4.1 cm left-sided renal mass. Reviewed images with her in details, discussed this is concerning for renal cell carcinoma. Option of partial nephrectomy, versus cryoablation, versus observation was discussed in detail. She agreed to proceed with a robotic left- sided partial nephrectomy aware of the risk which was met limited to bleeding, infection, injury to nearby organs. Discussed also potential of converting into a radical nephrectomy. Discussed if we do perform radical nephrectomy and potential of needing hemodialysis and the short and long-term. Risk of anesthesia was also discussed. She should all the risk and agreed to proceed Description of Procedure: The patient was taken to the operating room . General anesthesia was induced. She was prepped and draped in sterile fashion, she was placed in modified flank position . All pressure points were padded. The abdominal insufflation was achieved with the Veress needle. A 8 mm camera port was placed. Robotic trocars and assistant pressman ports were placed under direct vision. The robot was docked into place. The colon was mobilized medially by incising along the white line of Toldt. Next the spleen and the pancrease were mobilized. Once the bowel, spleen and pancreas were mobilized. At this time the gonadal vessel was visualized. Once the gonadal vessel and ureter was visualized , next after the psoas plane was developed the ureter and gonadal vessel was retracted anteriorly off the psoas muscle. Dissection proceeded cranially towards the renal hilum. Of note patient had significant amount fibrotic fat which made dissection toward the hilum more difficult. .The renal vessels were dissected. The renal artery and the vein was dissected in preparation for clamping. Of note patient had 3 renal arteries and 1 renal vein Next attention was carried to the tumor, the area around the tumor was defatted, insuring adequate defatting to identify a normal parenchyma. Again there was significant amount fibrotic fat all around the tumor but I was able to mobilize the fat to expose the capsular edges around the tumor. Manitol was administered. The renal artery was clamped using 2 bulldogs for the lower pole artery, and the 2 upper pole arteries were clamped using 2 bulldogs. After clamping the renal artery the tumor was excised sharply with adequate margin, and cautery was used in areas of bleeding. Next the defect was closed in 2 layers using 30V lock for the inner layer, 20V lock in interrupted fashion for the outer layer. Sliding clip technique was used. Next the clamps were removed, there was no evidence of bleeding from the defect, total clamp time was 11 minutes. Hemostatic agents were applied The kidney tumor was placed in an Endo Catch bag. . The robot was then de-docked and the specimen was then removed by extending the assistant pressman port. Fascia was closed with one layer using #1 PDS. Skin was closed with subcuticular sutures and dermabond. The patient was awoken from general anesthesia in stable condition. all counts were correct Please refer to the final pathology report for final diagnosis
[2023-03-06] MEDS: HYDROmorphone 0.5 MG/0.5 ML SYRINGE IVP PRN ×2 (15:50→16:00)
[2023-03-06] MEDS ORDERED: HEPARIN SODIUM,PORCINE 5,000 UNIT/ML 1 ML VIAL SQ SCH (16:00)
[2023-03-06 16:29] LABS: Glucose,Whole Blood 260 mg/dL (70-110)
[2023-03-06] MEDS ORDERED: INSULIN ASPART (NovoLOG) 100 UNIT/ML VIAL SQ ONE (16:47)
[2023-03-06] MEDS: KETOROLAC 15 MG/ML 1 ML VIAL IVP SCH ×2 (17:49→23:53)
[2023-03-06] MEDS: metFORMIN 500 MG TAB PO SCH (17:52)
[2023-03-06] MEDS: clonazePAM 1 MG TAB PO SCH (20:42)
[2023-03-06] MEDS: HYDROcodone/APAP 5-325MG 1 EACH TAB PO PRN (20:42)
[2023-03-06] MEDS: SODIUM CHLORIDE 0.9% 1,000 ML IV SCH (20:43)
[2023-03-06 21:07] LABS: Glucose,Whole Blood 171 mg/dL (70-110)
[2023-03-07] MEDS: SODIUM CHLORIDE 0.9% 1,000 ML IV SCH ×2 (01:57→20:07)
[2023-03-07] MEDS: LACTATED RINGERS 1,000 ML IV SCH ×2 (01:58)
[2023-03-07] MEDS: KETOROLAC 15 MG/ML 1 ML VIAL IVP SCH ×4 (05:26→23:46)
[2023-03-07 06:26] LABS: Glucose,Whole Blood 135 mg/dL (70-110)
[2023-03-07] MEDS: metFORMIN 500 MG TAB PO SCH ×2 (07:59→17:10)
[2023-03-07] MEDS: BISOPROLOL-HCTZ 2.5-6.25 MG 1 EACH TAB PO SCH (07:59)
[2023-03-07] MEDS: allopurinoL 300 MG TAB PO SCH (07:59)
[2023-03-07] MEDS: clonazePAM 0.5 MG TAB PO SCH (07:59)
[2023-03-07] MEDS: ATORVASTATIN 20 MG TAB PO SCH (07:59)
[2023-03-07 10:52] LABS: HCT 42.2 % (39.6-50.0); HGB 14.4 d/dL (13.0-17.0); MCH 31.8 pg (27.0-32.0); MCHC 34.1 d/dL (32.0-37.0); MCV 93.2 FL (80.0-97.0); Mean Platelet Volume 10.3 FL (9.5-12.2); NRBC Per 100 WBC 0 X 10*3/uL (0.00-0.01); Platelet Count 201 X 10*3/uL (140-440); RBC 4.53 X 10*6/uL (4.40-5.60); RDW 12.7 % (11.5-14.5); WBC 10.51 X 10*3/uL (4.50-10.00)
[2023-03-07 11:24] LABS: Glucose,Whole Blood 129 mg/dL (70-110)
--- NOTE | 2023-03-07 11:33 | P.ANPRN ---
Procedure Note - Anesthesia - Nerve Block Performed Bilateral Erector Spinae Single Time Out Performed: Yes Date of Procedure: 03/06/23 Procedure Start Time: 10:36 Procedure Stop Time: 10:44 Location of Patient: PreOp Indication: Acute Post-Operative Pain, Requested by Surgeon Sedation Type: Sedate with meaningful contact maintained Preparation: Sterile Prep Position: Prone Needle Types: Pajunk Needle Gauge: 21 Ultrasound used to visualize needle placement: Yes Ultrasound used to observe medication spread: Yes Blood Aspirated: No Pain Paresthesia on Injection Noted: No Resistance on Injection: Normal Image Stored and Saved: Yes Events: Uneventful and Well Tolerated (5% 15 mL plus normal saline 10 mL plus dexamethasone 4 mg given bilaterally at L1)
[2023-03-07] MEDS: HYDROcodone/APAP 5-325MG 1 EACH TAB PO PRN ×2 (12:40→20:10)
[2023-03-07 19:58] LABS: Glucose,Whole Blood 195 mg/dL (70-110)
[2023-03-07] MEDS: clonazePAM 1 MG TAB PO SCH (20:10)
[2023-03-08] MEDS: LACTATED RINGERS 1,000 ML IV SCH ×2 (02:14)
[2023-03-08] MEDS: SODIUM CHLORIDE 0.9% 1,000 ML IV SCH (02:14)
[2023-03-08 06:08] LABS: Glucose,Whole Blood 130 mg/dL (70-110)
[2023-03-08] MEDS: KETOROLAC 15 MG/ML 1 ML VIAL IVP SCH (06:31)
[2023-03-08] MEDS: metFORMIN 500 MG TAB PO SCH (06:32)
[2023-03-08 09:15] LABS: BUN/Creat Ratio 19.44 Ratio (12.00-20.00); Blood Urea Nitrogen 17.5 mg/dL (9.0-27.0); Calcium 8.8 mg/dL (8.7-10.3); Carbon Dioxide 26.4 mmol/L (21.6-31.8); Chloride 103 mmol/L (96-109); Glucose 118 mg/dL (70-110); Potassium 4.1 mmol/L (3.5-5.5); Sodium 139 mmol/L (135-145)
[2023-03-08] MEDS: clonazePAM 0.5 MG TAB PO SCH (09:26)
[2023-03-08] MEDS: BISOPROLOL-HCTZ 2.5-6.25 MG 1 EACH TAB PO SCH (09:26)
[2023-03-08] MEDS: allopurinoL 300 MG TAB PO SCH (09:26)
[2023-03-08] MEDS: ATORVASTATIN 20 MG TAB PO SCH (09:26)
[2023-03-08 09:38] VITALS: BP 112/66; PULSE 113; RESP 16; TEMP 97.8
--- NOTE | 2023-03-08 10:32 | P.DS ---
Providers Date of admission: 03/07/23 13:17 Expected date of discharge: 03/08/23 Attending physician: Syed Barraza MD Primary care physician: Russel Leal MD Hospital Course: On the day of admission, the patient underwent a robotic-assisted laparoscopic left partial nephrectomy. The perioperative course was unremarkable. The patient did experience mild voiding difficulty after Shepard catheter removal. At the time of discharge, postvoid residuals were ranging between 120 mL and 320 mL, but he denied difficulty voiding. He had not had a bowel movement. He remained afebrile with stable vital signs, other than mild tachycardia. He was comfortable at the time of discharge. Incisions were clean, dry, and intact. Procedures: Robotic-assisted laparoscopic left partial nephrectomy on 03/06/2023. Patient Condition at Discharge: Good Plan - Discharge Summary Discharge Rx Participant: No New Discharge Prescriptions: New HYDROcodone/APAP 5-325MG [Arnold 5-325] 1 tab PO Q6HR PRN 3 Days #12 tab PRN Reason: Pain traMADol HCl [Ultram] 50 mg PO Q6HR PRN 3 Days #10 tab PRN Reason: Moderate To Severe Pain (4-10) No Action Cetirizine HCl [Zyrtec] 10 mg PO DAILY PRN PRN Reason: Allergy Symptoms clonazePAM 2 mg PO HS Rosuvastatin Calcium 10 mg PO DAILY clonazePAM [KlonoPIN] 0.5 mg PO QAM Bisoprolol-Hctz 2.5-6.25 mg [Ziac 2.5-6.25 MG] 1 tab PO DAILY allopurinoL [Zyloprim] 300 mg PO DAILY sitaGLIPtin [Januvia] 50 mg PO DAILY metFORMIN HCL [Glucophage] 500 mg PO BID Discharge Medication List Bisoprolol-Hctz 2.5-6.25 mg [Ziac 2.5-6.25 MG] 1 tab PO DAILY 11/08/19 [History] Cetirizine HCl [Zyrtec] 10 mg PO DAILY PRN 11/08/19 [History] Rosuvastatin Calcium 10 mg PO DAILY 11/08/19 [History] allopurinoL [Zyloprim] 300 mg PO DAILY 11/08/19 [History] clonazePAM 2 mg PO HS 11/08/19 [History] clonazePAM [KlonoPIN] 0.5 mg PO QAM 11/08/19 [History] metFORMIN HCL [Glucophage] 500 mg PO BID 03/04/23 [History] sitaGLIPtin [Januvia] 50 mg PO DAILY 03/04/23 [History] HYDROcodone/APAP 5-325MG [Arnold 5-325] 1 tab PO Q6HR PRN 3 Days #12 tab 03/07/23 [Rx] traMADol HCl [Ultram] 50 mg PO Q6HR PRN 3 Days #10 tab 03/08/23 [Rx] Follow up Appointment(s)/Referral(s): Syed Barraza MD [STAFF PHYSICIAN] - 1 Week Activity/Diet/Wound Care/Special Instructions: No heavy lifting or straining for 4 weeks You may shower no baths Discharge Disposition: HOME SELF-CARE
== END 2023-03-08 11:53 | disposition home or self-care (01) ==
LOC: OR 09:07 → 4SSUR 15:05 → OR 03-07 13:17
PROVIDERS: ADMIT Urology; ATTEND Urology
DX: D30.02 Benign neoplasm of left kidney (principal); E11.9 Type 2 diabetes mellitus without complications; I10 Essential (primary) hypertension; E78.5 Hyperlipidemia, unspecified; F41.9 Anxiety disorder, unspecified; R00.0 Tachycardia, unspecified; Z79.84 Long term (current) use of oral hypoglycemic drugs; Z79.899 Other long term (current) drug therapy; Z96.652 Presence of left artificial knee joint; Z87.442 Personal history of urinary calculi; Z90.79 Acquired absence of other genital organ(s); Z84.89 Family history of other specified conditions; Z83.3 Family history of diabetes mellitus; Z83.49 Family history of other endocrine, nutritional and metabolic diseases; Z82.49 Family history of ischemic heart disease and other diseases of the circulatory system; Z80.0 Family history of malignant neoplasm of digestive organs; Z80.3 Family history of malignant neoplasm of breast
CPT/HCPCS: 50543; 94760 ×2; 64999; 86900; 86901; 80048; 85027; 86850; 88342; 88307; 88341; G0378 ×2; C1762; J2250; J0330; J0360; J1100; J2710; J0690; J2405; J2150; J3010; J1170 ×2; J2795; J1885 ×3; J2704; J1920

== ENCOUNTER → 2023-07-04 | Outpatient (CLI) | payer MEDICARE ==
--- NOTE | 2023-07-06 12:26 | MR ---
EXAMINATION TYPE: MR pancreas wo/w con DATE OF EXAM: 07/04/2023 2:40 PM CLINICAL INDICATION:Male, 72 years old with history of K86.2 CYST OF PANCREAS; PHH, Cyst of pancreas , Hx of mass removed from kidney, Hx of Prostate cancer 2007 COMPARISON: CT scan abdomen from 11/16/2022, MRI abdomen 01/07/2023.. TECHNIQUE: Multiplanar multi-sequence imaging was performed without contrast. Post contrast imaging was performed. Post IV contrast subtraction images were also submitted for review. IV Contrast: 9 cc Gadavist FINDINGS: LOWER CHEST: No gross irregularity. ABDOMEN Liver: Right hepatic lobe cyst with thin septations measuring up to 30 mm. No abnormal postcontrast e nhancement. No abnormal postcontrast enhancement. Additional simple appearing cysts in segment IVb. Gallbladder and Bile ducts: The gallbladder is distended with multiple large and small gallstones pre sent. The common bile duct is without evidence for choledocholithiasis. Pancreas: Main pancreatic duct is within normal limits. Pancreatic tail 18 mm, previously 14 mm parti ally cystic lesion is present and has some peripheral enhancement. Spleen: Unremarkable. Adrenal glands: Unremarkable. Kidneys: Right: Multiple high T2 signal renal cyst. Additionally there is a right inferior pole low T2 signal 32 mm, previously 29 mm cyst which demonstrates intrinsic high T1 signal compatible with hemorrhagic/ proteinaceous cyst. No suspicious right renal lesions. Left: Heterogenous appearing left inferior pole lesion measuring 56 x 53 mm previously 41 x 38 mm. Th ere is thin rim of postcontrast enhancement and surrounding desmoplastic reaction noted. There is ext ension possibly into the colon series 701 image 18 and postcontrast imaging series 901 image 193. No evidence for renal vein thrombus. There are additional left high T1 intrinsic signal cysts present compatible with hemorrhagic/proteina ceous cyst. No obstructive uropathy visualized. Stomach and Bowel: No evidence for bowel obstruction.. Peritoneum: No evidence Of pneumoperitoneum or free fluid. Vasculature: Unremarkable. No aortic aneurysm. Musculoskeletal: The osseous structures appear intact. Lymph Nodes: New left retroperitoneal cystic lesion measuring 19 x 22 mm with central high T2 signal and peripheral thickening along the left lateral aspect series 701 image 18/19 with thin rim of enhan cement on subtraction imaging. Additional enhancing lymph node at the level of the left renal sinus m easuring 6 mm on subtraction imaging series 903 image 30. Abdominal wall: Unremarkable. IMPRESSION: 1. Enlarging left inferior pole solid renal mass measuring up to 56 mm, Previously 41 mm and remains most compatible with solid renal neoplasm /renal cell carcinoma. New cystic lymph node and solid enh ancing lymph node near the left renal sinus concern from metastatic disease. Mildly increased size of pancreatic tail lesion which is increasing in size now measuring 18 mm, previously 14 mm this remain s indeterminate but concerning for metastatic disease. There is questionable extension and microinvas ion into the descending colon which is not present on prior. 2. Bilateral proteinaceous/hemorrhagic renal cyst. Additionally, bilateral simple appearing renal cy sts. 3. No evidence for obstructive uropathy. 4. Extensive cholelithiasis with a few large and small gallstones. Similar gallstones are in the gal lbladder neck. 5. Simple appearing liver cysts.
== END | disposition home or self-care (01) ==
LOC: RADMRIMAIN 13:23
PROVIDERS: ATTEND Internal Medicine Gastroenterology
DX: K86.2 Cyst of pancreas (principal); K76.89 Other specified diseases of liver; N28.1 Cyst of kidney, acquired; K80.20 Calculus of gallbladder without cholecystitis without obstruction; N28.89 Other specified disorders of kidney and ureter
CPT/HCPCS: 74183; A9585

== ENCOUNTER → 2023-07-09 | Outpatient (CLI) | payer MEDICARE ==
[2023-07-09 18:22] LABS: Basophils # (A) 0.04 X 10*3/uL (0.00-0.10); Basophils % (A) 0.8 %; Eosinophils # (A) 0.14 X 10*3/uL (0.04-0.35); Eosinophils % (A) 2.7 %; HCT 48.1 % (39.6-50.0); HGB 15.5 g/dL (13.0-17.0); Lymphocytes # (A) 0.93 X 10*3/uL (0.90-5.00); Lymphocytes % (A) 17.7 %; MCH 30.5 pg (27.0-32.0); MCHC 32.2 g/dL (32.0-37.0); MCV 94.7 FL (80.0-97.0); Monocytes # (A) 0.49 X 10*3/uL (0.20-1.00); Monocytes % (A) 9.3 %; NRBC Per 100 WBC 0 X 10*3/uL (0.00-0.01); Neutrophils # (A) 3.63 X 10*3/uL (1.80-7.70); Neutrophils % (A) 69.1 %; Platelet Count 247 X 10*3/uL (140-440); RBC 5.08 X 10*6/uL (4.40-5.60); WBC 5.25 X 10*3/uL (4.50-10.00)
[2023-07-09 18:37] LABS: ALT 43 U/L (10-49); AST 38 U/L (14-35); Albumin 4.6 g/dL (3.8-4.9); Alkaline Phosphatase 98 U/L (41-126); BUN/Creat Ratio 12.33 Ratio (12.00-20.00); Blood Urea Nitrogen 11.1 mg/dL (9.0-27.0); Calcium 9.8 mg/dL (8.7-10.3); Carbon Dioxide 27.1 mmol/L (21.6-31.8); Chloride 106 mmol/L (96-109); Chol/HDL Ratio 4.19 Ratio; Globulin 2.7 g/dL (1.6-3.3); Glucose 106 mg/dL (70-110); LDL Cholesterol,Calculated 76.6 mg/dL (0.0-131.0); Potassium 4.7 mmol/L (3.5-5.5); Sodium 146 mmol/L (135-145); Total Bilirubin 0.3 mg/dL (0.3-1.2); Total Protein 7.3 g/dL (6.2-8.2)
[2023-07-09 18:50] LABS: Prostate Specific Antigen <0.01 ng/mL (0.000-6.500)
== END | disposition home or self-care (01) ==
LOC: LABWHC1 12:48
PROVIDERS: ATTEND Internal Medicine
DX: C61 Malignant neoplasm of prostate (principal); I10 Essential (primary) hypertension; E78.5 Hyperlipidemia, unspecified; E11.9 Type 2 diabetes mellitus without complications
CPT/HCPCS: 36415; 80053; 80061; 84153; 84443; 85025

== ENCOUNTER → 2023-07-24 | Outpatient (CLI) | payer MEDICARE ==
--- NOTE | 2023-07-24 11:07 | PE ---
EXAMINATION TYPE: PET CT fusion skull to thigh DATE OF EXAM: 07/24/2023 CLINICAL INDICATION:Male, 72 years old with history of R59.0 LOCALIZED ENLARGED LYMPH NODES; TECHNIQUE: Following the intravenous administration of 11.87 mCi of F-18 FDG, whole body images are performed from the skull base to the midthigh. Images are reviewed on the computer in the coronal, axial, and sagittal planes. Reconstructed rotating images are created on independent workstation and reviewed on the computer. A non-contrast CT is performed in conjunction with the PET scan. Glucose level 121 mg/dL CT DLP: 662 mGycm, Automated exposure control for dose reduction was used. COMPARISON: CT 11/16/2022 MRI 07/04/2023 MRI 01/07/2023, PET/CT None, FINDINGS: Mediastinal SUV mean is 2.2. Hepatic parenchyma SUV mean is 2.9. SKULL BASE AND NECK: No suspicious radiotracer activity. CHEST, MEDIASTINUM, AND HILAR REGION: No suspicious radiotracer activity. ABDOMEN AND PELVIS: * Left inferior renal suspected postsurgical change with fat stranding changes and peripherally FDG avid along the periphery, inferiorly max SUV 6.7 and superior and lateral 9.80. Area measures 5.9 x 4.5 cm. * Cystic lesion near the left renal sinus measuring 15 mm in short axis (previously 19 mm) with max SUV 3.5 was not definitively seen on 01/07/2023 and new 2 MRI on 07/04/2023 with cystic central componen t and some thickening of the logan. A smaller lymph node which was enhancing on 07/04/2023 exam measure s similarly at 6 mm in short axis. Max SUV 1.2. * No significant uptake is seen within the pancreatic tail lesion. Max SUV 2.2. MUSCULOSKELETAL STRUCTURES: No suspicious radiotracer activity. OTHER CT: Atherosclerosis of the arterial vasculature including the coronary arteries. Mild gynecomas tia changes. Right hepatic lobe cyst. Cholelithiasis large stones in the fundus. Heterogenous appeara nce to the left inferior perinephric fat. The prostate gland appears surgically absent. IMPRESSION: * Post surgical changes with peripheral FDG activity in the surgical bed of the left kidney. FDG act ivity along the periphery could represent post surgical change versus * The left renal sinus cystic lymph node on prior MRI may be fractionally smaller in demonstrates FD G activity near background levels. Additionally, a smaller retroperitoneal lymph node is below the se nsitivity for PET/CT. Both of these lesions should be watched closely with short-term follow-up imagi ng. Findings concerning for early metastatic disease at this time.
== END | disposition home or self-care (01) ==
LOC: RADPETMAIN 06:55
PROVIDERS: ATTEND Urology
DX: R59.0 Localized enlarged lymph nodes (principal); Z98.890 Other specified postprocedural states
CPT/HCPCS: 78815; A9552

== ENCOUNTER → 2023-10-21 | Outpatient (CLI) | payer MEDICARE ==
--- NOTE | 2023-10-22 14:38 | MR ---
EXAMINATION TYPE: MR kidney wo/w con DATE OF EXAM: 10/21/2023 COMPARISON: MRI pancreas July 04, 2023 HISTORY: Left renal mass removed, F/U post surgery. CONTRAST: Standard multiplanar, multisequence MRI departmental protocol images were obtained without contrast a nd with 9 mL intravenous Gadavist gadolinium contrast. Imaging of the abdomen focusing on the bilate ral kidneys. FINDINGS: Kidneys: Cortical thinning throughout both kidneys is redemonstrated with small simple appearing thin -walled cysts bilaterally. Findings are consistent with product of chronic medical renal disease. Exo phytically from the lower pole level of the right kidney there is persistent 3.5 cm thin-walled cyst having nondependent T1 hyperintense fluid consistent with proteinaceous cyst. Prior visualized nonsim ple exophytic cyst from the lower pole of the left kidney has been treated in the interval. There is some residual lesion anteriorly having some rim enhancement measuring 1.8 cm craniocaudal dimension c oronal image 65 series 1001. No hydronephrosis seen bilaterally. Other: Lung bases are clear. There are some simple-appearing thin-walled cysts throughout the liver r edemonstrated. There are large internal gallstones and gallbladder are again seen. No biliary dilatat ion. The spleen and both adrenal glands remain within normal limits. Pancreas is persistent thin-wall ed cyst or cystic lesion in the tail of the pancreas measuring near 1.8 cm long axis. No abnormal bow el dilatation. No intra-abdominal ascites. No AAA. IMPRESSION: Interval treatment change to lower pole left kidney. Suspect small amount of residual mas s or nonsimple cyst exophytically from the lower pole of the left kidney. If malignant etiology was p resent on pathology further treatment would be advised either with ablation or repeat surgical attemp t. Correlate clinically.
== END | disposition home or self-care (01) ==
LOC: RADMRIMAIN 08:30
PROVIDERS: ATTEND Urology
DX: D41.02 Neoplasm of uncertain behavior of left kidney (principal)
CPT/HCPCS: 74183; A9585

== ENCOUNTER 2024-02-17 12:00 | Emergency (ER) | payer MEDICARE ==
[2024-02-17] MEDS ORDERED: DIPH,PERTUS(ACELL)TETVAC-LF 0.5 ML VIAL IM ONE (12:41)
[2024-02-17] MEDS ORDERED: LIDOCAINE 1% INJ 10MG/ML (20 ML MDV) ONE (12:43)
== END 2024-02-17 14:05 | disposition home or self-care (01) ==
LOC: EC 12:00
CPT/HCPCS: 12002; 90471; 90715; 99282

== ENCOUNTER → 2024-04-07 | Outpatient (CLI) | payer MEDICARE ==
--- NOTE | 2024-04-07 11:13 | US ---
EXAMINATION TYPE: US liver DATE OF EXAM: 04/07/2024 COMPARISON: PET CT scan 07/24/2023 CLINICAL INDICATION: Male, 73 years old with history of R74.01 TRANSAMINITIS; Abnormal labs. Hx of g all stones, liver cyst. TECHNIQUE: Grayscale and color Doppler imaging of the right upper quadrant was performed. 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 Echogenic and coarse in appearance. Two areas visualized in right lobe, 1- 1.2 x 1.1 x 1.0 cm and 2- complex = 3.4 x 3.0 x 2.4 cm Gallbladder: Multiple mobile echogenic foci Evidence for sonographic Bowers's sign: neg CBD: limited Right Kidney: lower pole complex hypoechoic area= 4.1 x 3.3 x 3.2 cm IMPRESSION: 1. Hepatomegaly with findings suggestive of underlying cellular disease. There are indeterminate comp clive areas within the liver with the largest measuring 3.4 cm. Exam is technically limited due to over lying bowel gas. Suspect these are related to prior reported hepatic cysts. Other etiologies not excl uded by this exam given the limitations. Recommend CT of the abdomen. 2. Cholelithiasis. CBD is dilated at 9 mm in distal CBD stone or pathology in the differential diagno sis. [facility], , 04/07/2024 11:10 AM
== END | disposition home or self-care (01) ==
LOC: RADUSWWP 06:53
PROVIDERS: ATTEND Internal Medicine
DX: R74.01 Elevation of levels of liver transaminase levels
CPT/HCPCS: 76705

== ENCOUNTER → 2024-04-26 | Outpatient (CLI) | payer MEDICARE ==
--- NOTE | 2024-04-26 16:14 | MR ---
EXAMINATION TYPE: MR kidney wo/w con DATE OF EXAM: 04/26/2024 2:46 PM COMPARISON: 10/21/2023. 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 Post contrast imaging was performed. Post IV contrast subtraction images were also submitted for review. IV Contrast: 9 cc Gadavist FINDINGS: LOWER CHEST: No gross irregularity. ABDOMEN Liver: No evidence for hepatic steatosis or cirrhosis.; Mildly complex hepatic cysts are unchanged. N o solid enhancing observations. Gallbladder and Bile ducts: No evidence for ductal dilation, or bilia ry stricture or evidence of choledocholithiasis. The gallbladder demonstrates multiple gallstones whi ch are larger and innumerable smaller gallstones present. Pancreas: No ductal dilation. No evidence for solid mass. Pancreatic cystic lesions in the tail with central nonenhancement measuring up to 13 mm more medially is not significantly different given diffe rences in technique dating back to 01/07/2023. Spleen: Normal for size. Adrenal glands: Unremarkable. Kidneys: Postsurgical changes of left inferior pole of the kidney. Decrease in the surgical bed heter ogenous tissue compared to prior. No new or enlarging masses definitively visualized. No evidence for hydronephrosis. Multiple intrinsic high T1/low T2 signal renal cysts bilaterally some with layering high T1 signal. Additional simple appearing hepatic T2 low T1 cysts. Subtraction imaging confirms no enhancement of the cyst. Stomach and Bowel: No evidence for bowel wall thickening or evidence for obstruction. Retroperitoneum/Peritoneum: No evidence of pneumoperitoneum or free fluid. Vasculature: No aortic aneurysm. Musculoskeletal: The osseous structures appear intact. Lymph Nodes: No gross evidence for lymphadenopathy. Abdominal wall: Unremarkable. IMPRESSION: 1. Postsurgical changes of left inferior pole of the kidney. Decrease in the surgical bed heterogeno us tissue compared to prior. No suspicious solid renal masses. No evidence for lymphadenopathy. 2. Bilateral Bosniak type I and type II equivalent renal cysts. 3. Decrease in size of pancreatic tail cystic lesions largest now measuring 12 mm, previously 14. Fi ndings similar to 01/07/2023. Finding could represent sequela prior pancreatitis versus a primary cyst ic neoplasm. 3. Cholelithiasis with multiple large stones and innumerable smaller stones presen 4. Mildly complex hepatic cyst. [facility], , 04/26/2024 4:12 PM
== END | disposition home or self-care (01) ==
LOC: RADMRIMAIN 13:16
PROVIDERS: ATTEND Urology
CPT/HCPCS: 74183